=== PATIENT | female | born 1995 | race African-American/Black ===

== ENCOUNTER 2019-01-21 20:01 | Emergency (ER) | payer OTHER, SELFPAY ==
[2019-01-21] MEDS ORDERED: ACETAMINOPHEN 500 MG TAB ONE (21:13)
--- NOTE | 2019-01-21 21:13 | ER ---
Nurse's Notes [facility] Name: Cindy Baker Age: 23 yrs Sex: Female : 1995 Arrival Date: 01/21/2019 Time: 20:02 Bed 14 Private MD: Diagnosis: Acute upper respiratory infection, unspecified Presentation: 01/21 20:09 Presenting complaint: Patient states: I have a sore throat, headache, and fever. ed1 Transition of care: patient was not received from another setting of care. Onset of symptoms was January 21, 2019. Risk Assessment: Do you want to hurt yourself or someone else? Patient reports no desire to harm self or others. Initial Sepsis Screen: Does the patient meet any 2 criteria? No. Patient's initial sepsis screen is negative. Does the patient have a suspected source of infection? No. Patient's initial sepsis screen is negative. Care prior to arrival: Medication(s) given: Motrin, BC powder. 20:09 Method Of Arrival: Ambulatory ed1 20:09 Acuity: ARIANNA 4 ed1 Triage Assessment: 20:10 Headache History: The patient has had previous headaches and this one is similar to ed1 previous episodes. General: Appears in no apparent distress. Behavior is calm, cooperative, Pt texting on phone during triage. Pain: Complains of pain in head Pain currently is 8 out of 10 on a pain scale. Pain began this afternoon Also complains of body aches. Neuro: Level of Consciousness is awake, alert, obeys commands, Oriented to person, place, time, situation. 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 Patient has never been vaccinated. - Social history:: Smoking status: Patient uses tobacco products, denies chronic smoking, but will smoke occasionally. - Ebola Screening: : Patient negative for fever greater than or equal to 101.5 degrees Fahrenheit, and additional compatible Ebola Virus Disease symptoms Patient denies exposure to infectious person Patient denies travel to an Ebola-affected area in the 21 days before illness onset No symptoms or risks identified at this time. Screenin:20 Abuse screen: Denies threats or abuse. Denies injuries from another. Nutritional rv screening: No deficits noted. Tuberculosis screening: No symptoms or risk factors identified. Fall Risk None identified. Assessment: 21:05 General: Appears in no apparent distress. comfortable, Behavior is calm, cooperative. rv Pain: Complains of pain in head. Neuro: Level of Consciousness is awake, alert, obeys commands, Oriented to person, place, time, situation, Reports headache. Cardiovascular: Patient's skin is warm and dry. Respiratory: Airway is patent. GI: No signs and/or symptoms were reported involving the gastrointestinal system. : No signs and/or symptoms were reported regarding the genitourinary system. EENT: No signs and/or symptoms were reported regarding the EENT system. Derm: Skin is intact. 21:05 Musculoskeletal: No signs and/or symptoms reported regarding the musculoskeletal system.rv Vital Signs: 20:10 BP 138 / 81; Pulse 102; Resp 20; Temp 100.0(TE); Pulse Ox 98% on R/A; Weight 62.14 kg; ed1 Height 5 ft. 2 in. (157.48 cm); Pain 8/10; 21:21 BP 124 / 78; Pulse 96; Resp 17; Temp 99.6; Pulse Ox 99% ; rv 20:10 Body Mass Index 25.06 (62.14 kg, 157.48 cm) ed1 ED Course: 20:02 Patient arrived in ED. am2 20:10 Triage completed. ed1 20:10 Arm band placed on. ed1 20:12 Sadaf Hitchcock FNP-C is PHCP. kb 20:12 Karl Thomson MD is Attending Physician. kb 20:24 Sang Nichols RN is Primary Nurse. rv 21:20 Patient has correct armband on for positive identification. Call light in reach. Side rv rails up X 1. Pulse ox on. NIBP on. 21:20 No provider procedures requiring assistance completed. Patient did not have IV access rv during this emergency room visit. Administered Medications: 21:07 Drug: Tylenol 1000 mg Route: PO; rv 21:21 Follow up: Response: No adverse reaction rv Outcome: 21:13 Discharge ordered by . kb 21:21 Discharged to home ambulatory. rv 21:21 Condition: good 21:21 Discharge instructions given to patient, Instructed on discharge instructions, follow up and referral plans. Demonstrated understanding of instructions, follow-up care. 21:22 Patient left the ED. rv Signatures: Sadaf Hitchcock, CUTTING TABLE OPERATOR FIRST-C BARI-Nadira Link RN RN ed1 Shazia Roberts am2 Sang Nichosl, RN RN rv
--- NOTE | 2019-01-21 21:14 | EDPHYS ---
Physician Documentation [facility] Name: Cindy Baker Age: 23 yrs Sex: Female : 1995 Arrival Date: 01/21/2019 Time: 20:02 Bed 14 Private MD: APRIL Physician Karl Thomson HPI: 01/21 21:04 This 23 yrs old Black Female presents to ER via Ambulatory with complaints of Headache, kb Sore Throat, Body ache. 21:04 The patient or guardian reports cough, that is intermittent, described as mild, with no kb sputum, flu symptoms, low-grade fever. The patient or guardian reports. Onset: The symptoms/episode began/occurred today. Severity of symptoms: At their worst the symptoms were mild, moderate, in the emergency department the symptoms are unchanged. Modifying factors: The symptoms are alleviated by nothing, the symptoms are aggravated by nothing. Associated signs and symptoms: Pertinent positives: fever, sore throat, Pertinent negatives: chest pain, diarrhea, ear ache, nausea, rhinorrhea, vomiting. The patient has not experienced similar symptoms in the past. The patient has not recently seen a physician. 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 Patient has never been vaccinated. - Social history:: Smoking status: Patient uses tobacco products, denies chronic smoking, but will smoke occasionally. - Ebola Screening: : Patient negative for fever greater than or equal to 101.5 degrees Fahrenheit, and additional compatible Ebola Virus Disease symptoms Patient denies exposure to infectious person Patient denies travel to an Ebola-affected area in the 21 days before illness onset No symptoms or risks identified at this time. ROS: 21:04 Neck: Negative for injury, pain, and swelling, Cardiovascular: Negative for chest pain, kb palpitations, and edema, Abdomen/GI: Negative for abdominal pain, nausea, vomiting, diarrhea, and constipation, Back: Negative for injury and pain, : Negative for injury, bleeding, discharge, and swelling, MS/Extremity: Negative for injury and deformity, Skin: Negative for injury, rash, and discoloration, Neuro: Negative for headache, weakness, numbness, tingling, and seizure. 21:04 Constitutional: Positive for body aches, chills, fatigue, fever, malaise, Negative for poor PO intake, weight loss. 21:04 ENT: Positive for sore throat. 21:04 Respiratory: Positive for cough, Negative for dyspnea on exertion, hemoptysis, orthopnea, pleurisy, shortness of breath, sputum production, wheezing. Exam: 21:03 Constitutional: This is a well developed, well nourished patient who is awake, alert, kb and in no acute distress. Head/Face: Normocephalic, atraumatic. Chest/axilla: Normal chest wall appearance and motion. Nontender with no deformity. No lesions are appreciated. Cardiovascular: Regular rate and rhythm with a normal S1 and S2. No gallops, murmurs, or rubs. Normal PMI, no JVD. No pulse deficits. Respiratory: Lungs have equal breath sounds bilaterally, clear to auscultation and percussion. No rales, rhonchi or wheezes noted. No increased work of breathing, no retractions or nasal flaring. Abdomen/GI: Soft, non-tender, with normal bowel sounds. No distension or tympany. No guarding or rebound. No evidence of tenderness throughout. Skin: Warm, dry with normal turgor. Normal color with no rashes, no lesions, and no evidence of cellulitis. MS/ Extremity: Pulses equal, no cyanosis. Neurovascular intact. Full, normal range of motion. Neuro: Awake and alert, GCS 15, oriented to person, place, time, and situation. Cranial nerves II-XII grossly intact. Motor strength 5/5 in all extremities. Sensory grossly intact. Cerebellar exam normal. Normal gait. 21:03 ENT: External ear(s): are unremarkable, Ear canal(s): are normal, TM's: are normal, Nose: is normal, Mouth: is normal, Posterior pharynx: Airway: normal, no evidence of obstruction, Tonsils: bilaterally enlarged, with erythema, Uvula: normal, midline, swelling, that is mild, erythema, that is mild, exudate, is not appreciated. Vital Signs: 20:10 BP 138 / 81; Pulse 102; Resp 20; Temp 100.0(TE); Pulse Ox 98% on R/A; Weight 62.14 kg; ed1 Height 5 ft. 2 in. (157.48 cm); Pain 8/10; 21:21 BP 124 / 78; Pulse 96; Resp 17; Temp 99.6; Pulse Ox 99% ; rv 20:10 Body Mass Index 25.06 (62.14 kg, 157.48 cm) ed1 MDM: 20:14 Patient medically screened. kb 21:01 Data reviewed: vital signs, nurses notes. Data interpreted: Pulse oximetry: on room air kb is 98 %. Interpretation: normal. Counseling: I had a detailed discussion with the patient and/or guardian regarding: the historical points, exam findings, and any diagnostic results supporting the discharge/admit diagnosis, lab results, the need for outpatient follow up, a family practitioner, to return to the emergency department if symptoms worsen or persist or if there are any questions or concerns that arise at home. 01/21 20:12 Order name: Flu; Complete Time: 21:12 kb 01/21 20:12 Order name: Strep; Complete Time: 21:06 kb 01/21 21:04 Order name: Throat Culture EDMS Administered Medications: 21:07 Drug: Tylenol 1000 mg Route: PO; rv 21:21 Follow up: Response: No adverse reaction rv Disposition: 01/22 07:17 Co-signature as Attending Physician, Karl Thomson MD I agree with the assessment and bridger plan of care. Disposition: 01/21/19 21:13 Discharged to Home. Impression: Acute upper respiratory infection, unspecified. - Condition is Stable. - Discharge Instructions: Upper Respiratory Infection, Adult, [id number], Viral Respiratory Infection, [id number]. - Medication Reconciliation Form, Thank You Letter, Antibiotic Education, Prescription Opioid Use form. - Work release form (01/24/19 12:53). bd - Follow up: Emergency Department; When: As needed; Reason: Worsening of condition. Follow up: Private Physician; When: 2 - 3 days; Reason: Recheck today's complaints, Continuance of care, Re-evaluation by your physician. Signatures: Dispatcher [employer] EDMS Sadaf Hitchcock, QUANTITATIVE ANALYST-C BARI-Karl Gonzalez MD MD cha Riggs, Erika, RN RN ed1 Sang Nichols RN RN rv Sharri Castro Corrections: (The following items were deleted from the chart) 01/21 21:22 21:13 01/21/2019 21:13 Discharged to Home. Impression: Acute upper respiratory rv infection, unspecified. Condition is Stable. Forms are Medication Reconciliation Form, Thank You Letter, Antibiotic Education, Prescription Opioid Use. Follow up: Emergency Department; When: As needed; Reason: Worsening of condition. Follow up: Private Physician; When: 2 - 3 days; Reason: Recheck today's complaints, Continuance of care, Re-evaluation by your physician. kb
== END 2019-01-21 21:22 | disposition home or self-care (01) ==
LOC: ER 20:01
DX: J06.9 Acute upper respiratory infection, unspecified (principal); Z88.2 Allergy status to sulfonamides; Z72.0 Tobacco use
CPT/HCPCS: 87070; 87081; 87804; 99283

== ENCOUNTER 2020-05-22 14:54 | Emergency (ER) | payer SELFPAY ==
--- OUTSIDE RECORDS SUMMARY | 2020-05-22 15:19 | XMS REPORT | Continuity of Care Document ---
:1995 Author Organization [facility] t Address [address] [place] [address] Care Team Providers Name Role Phone Johanny Wiseman Attending Clinician Problems This patient has no known problems. Allergies, Adverse Reactions, Alerts This patient has no known allergies or adverse reactions. Medications This patient has no known medications. Procedures This patient has no known procedures. Encounters Start End Encounter Admission Attending Care Care Encounter Source Date/Time Date/Time Type Type Clinicians Facility Department ID 2020-02-29 2020-02-29 Office SANTANA Mcintosh [id number] 10:34:11 11:10:39 Visit Soledad Orlando PROGRESS CLERK [id number] [facility] [id number] MATERNAL [id number] & CHILD [address] [place] [address] Results This patient has no known results.
--- OUTSIDE RECORDS SUMMARY | 2020-05-22 15:19 | XMS REPORT | Summary of Care ---
:1995 Author Organization [facility] Address [address] [place] [id number] Care Team Providers Name Role Phone Johanny Mcintosh Primary Care Provider Reason for Visit Reason Comments Well Woman Exam Encounter Details Date Type Department Care Team Description 02/29/2020 Office Visit [facility]- Soledad Mcintosh for other contraceptive management (Primary Dx); LESLIE Loera IUD (intrauterine device) in place; [address] [place] [address] Screen for STD (sexually transmitted dis ease); [address] [place] A Well woman exam [place], [place] [id number] Allergies Active Allergy Reactions Severity Noted Date Comments Sulfa (Sulfonamide Antibiotics) Rash 6 documented as of this encounter (statuses as of 02/29/2020) Medications Medication Sig Dispensed Refills Start Date End Date Status metroNIDAZOLE 500 mg Take 1 tablet by 14 tablet 0 06/26/2019 Active tabletIndications: mouth 2 (two) Pelvic pain times daily. metroNIDAZOLE Insert 1 70 g 2 09/07/2019 Activ e (METROGEL VAGINAL) Applicator into 0.75 % vaginal vagina 2 (two) gelIndications: times per week for Vaginal discharge Other (BV). For 3 to 6 months documented as of this encounter (statuses as of 02/29/2020) Active Problems Problem Noted Date Trichomonal vulvovaginitis 02/17/2019 IUD strings lost 12/03/2018 Vaginal yeast infection 03/10/2018 Chlamydia infection 12/25/2017 IUD (intrauterine device) in place 11/05/2017 Encounter for contraceptive management 06/27/2016 Metrorrhagia 06/27/2016 Well woman exam 12/25/2015 Nexplanon removal 12/25/2015 Overview: Placed 12/2015, removed 07/2018 documented as of this encounter (statuses as of 02/29/2020) Resolved Problems Problem Noted Date Resolved Date Screening for STD (sexually transmitted disease) 06/27/2016 08/06/2017 Overweight 12/25/2015 08/06/2017 Liveborn infant, of mathur , born in hospital by 07/30/2015 12/14/2015 vaginal delivery 39 weeks gestation of 07/28/2015 12/14/19 16 Group B streptococcal bacteriuria 06/05/20152015 Antepartum asymptomatic bacteriuria 05/22/201512/07 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 High-risk 05/22/2015 12/25/2015 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 History of palpitations 05/22/2015 12/25/2015 Need for prophylactic vaccination with combined 05/22/2015 12/25/2015 ywwsykbwfi-qhzmtlr-vvbrmnaip (DTP) vaccine Rh negative state in antepartum period, third trimester, fet us 05/22/2015 12/25/2015 1 BV (bacterial vaginosis) 11/11/2014 06/05/2015 General counseling for initiation of other contraceptive 02/201506/05/2015 measures Rubella immune 11/11/2014 12/25/2015 documented as of this encounter (statuses as of 02/29/2020) Immunizations Name Administration Dates Next Due DTAP 08/19/2007 HEPATITIS A 08/19/2007 HPV 05/22/2015 (Deferred: Contraindication), 08/19/2007 HPV9 08/06/2017 Influenza Virus Vaccine Quad ID [id number] 06/19/2015 YRS Meningococcal Vaccine 08/19/2007 Rho (d) Immune Globulin 05/22/2015 TDAP 05/22/2015, 09/08/2011 Varicella (varivax)(chicken pox) 08/19/2007 documented as of this encounter Social History Tobacco Use Types Packs/Day Years Used Date Never Smoker Smokeless Tobacco: Never Used Comments: Socially Alcohol Use Drinks/Week oz/Week Comments Yes 0 Standard drinks or equivalent 0.0 socially Alcohol Habits Answer Date Recorded How often do you have a drink containing alcohol? Monthly or less 02/29/2020 How many drinks containing alcohol do you have on a Not aske d typical day when you are drinking? How often do you have six or more drinks on one Not asked occasion? Sex Assigned at Date Recorded Not on file Job Start Date Occupation Industry Not on file Not on file Not on file Travel History Travel Start Travel End No recent travel history available. COVID-19 Exposure Response Date Recorded In the last month, have you been in contact with No / Unsure 02/29/2020 10:40 AM CDT someone who was confirmed or suspected to have Coronavirus / COVID-19? documented as of this encounter Last Filed Vital Signs Vital Sign Reading Time Taken Comments Blood Pressure 123/82 02/29/2020 10:40 AM CDT Pulse 90 02/29/2020 10:40 AM CDT Temperature 37.1 C (98.7 F) 02/29/2020 10:40 AM CDT Respiratory Rate 16 02/29/2020 10:40 AM CDT Oxygen Saturation - - Inhaled Oxygen Concentration - - Weight 60.9 kg (134 lb 5 oz) 02/29/2020 10:40 AM CDT Height 157.5 cm (5' 2") 02/29/2020 10:40 AM CDT Body Mass Index 24.57 02/29/2020 10:40 AM CDT documented in this encounter Patient Instructions Patient InstructionsKinza Luciano RN - 02/29/2020 10:30 AM CDT Patient Education Prevention Guidelines,Women Ages 18 to 39 Screening tests and vaccines are an important part of managing your health. A screening test is doneto find possible disorders or diseases in people who don't have any symptoms. The goal is to find a disease early so lifestyle changes can be made and you can be watched more closely to reduce the riskof disease, or to detect it early enough to treat it most effectively. Screening tests are not considered diagnostic, but are used to determine if more testing is needed. Health counseling is essential, too. Below are guidelines for these, for women ages 18 to 39. Talk with your healthcare provider tomake sure youre up-to-date on what you need. Screening Who needs it How often Alcohol misuse All women in this age group At routine exams Blood pressure All women in this age group Yearly checkup if your blood pressure is normal Normal blood pressure is less than 120/80 mm Hg If your blood pressure reading is higher than normal, follow the advice of your healthcare provider Breast cancer All women in this age group should talk with their healthcare providers about the needfor clinical breast exams (CBE)1 Clinical breast exam every 3 years1 Cervical cancer Women ages 21 and older Women between ages 21 and 29 should have a Pap test every 3 years; women between ages 30 and 65 are advised to have a Pap test plus an HPV test every 5 years Chlamydia Sexually active women ages 25 and younger, and women at increased risk for infection (suchas having multiple sex partners) Every year if you're at risk or have symptoms Depression All women in this age group At routine exams Type 2 diabetes, prediabetes All women with no symptoms who are overweight or obese and have 1 or more other risk factors for diabetes At least every 3 years. Also, testing for diabetes during after the 24th week. Type 2 diabetes, prediabetes All women diagnosed with gestational diabetes Lifelong testing every 3 years Type 2 diabetes All women with prediabetes Every year Gonorrhea Sexually active women at increased risk for infection At routine exams Hepatitis C Anyone at increased risk At routine exams HIV All women should be tested at least once for HIV between the ages of 13 and 64 At routine exams.Those with risk factors for HIV should be tested at least annually. Obesity All women in this age group At routine exams Syphilis Women at increased risk for infection should talk with their healthcare provider At routineexams Tuberculosis Women at increased risk for infection should talk with their healthcare provider Ask your healthcare provider Vision All women in this age group At least 1 complete exam in your 20s, and 2 in your 30s Vaccine2 Who needs it How often Chickenpox (varicella) All women in this age group who have no record of this infection or vaccine 2doses; the second dose should be given 4 to 8 weeks after the first dose Hepatitis A Women at increased risk for infection should talk with their healthcare provider 2 dosesgiven at least 6 months apart Hepatitis B Women at increased risk for infection should talk with their healthcare provider 3 dosesover 6 months; second dose should be given 1 month after the first dose; the third dose should be given at least 2 months after the second dose and at least 4 months after the first dose Haemophilus influenzaeType B (HIB) Women at increased risk for infection should talk with their healthcare provider 1 to 3 doses Human papillomavirus (HPV) All women in this age group up to age 26 3 doses; the second dose should be given 1 to 2 months after the first dose and the third dose given 6 months after the first dose Influenza (flu) All women in this age group Once a year Measles, mumps, rubella (MMR) All women in this age group who have no record of these infections or vaccines 1 or 2 doses Meningococcal Women at increased risk for infection should talk with their healthcare provider 1 or more doses Pneumococcal conjugate vaccine (PCV13)and pneumococcal polysaccharidevaccine(PPSV23) Women at increased risk for infection should talk with their healthcare provider PCV13: 1 dose ages 19 to 65 (protects against 13 types of pneumococcal bacteria) PPSV23: 1 to2 doses through age 64, or 1 dose at 65 or older (protects against 23 types of pneumococcal bacteria) Tetanus/diphtheria/pertussis (Td/Tdap) booster All women in this age group Td every 10 years, or a one-time dose of Tdap instead of a Td booster after age 18, then Td every 10 years Counseling Who needs it How often BRCA gene mutation testing for breast and ovarian cancer susceptibility Women with increased risk for having gene mutation When your risk is known Breast cancer and chemoprevention Women at high risk for breast cancer When your risk is known Diet and exercise Women who are overweight or obese When diagnosed, and then at routine exams Domestic violence Women at the age in which they are able to have children At routine exams Sexually transmitted infection prevention Women who are sexually active At routine exams Skin cancer Prevention of skin cancer in fair-skinned adults At routine exams Use of tobacco and the health effects it can cause All women in this age group Every visit 1 According to the ACS, women ages 20 to 39 years should have a clinical breast exam (CBE) as part of their routine health exam every 3 years. Breast self-exams are an option for women starting in their 20s.But the USPSTF does not recommend CBE. Russell last reviewed this educational content on 06/08/201719991588-[address] [employer] [place] [address], [place] [address]. All rights reserved. This information is not intended as a substitute for professional medical care. Always follow your healthcare professional's instructions. Patient Education What Are Sexually Transmitted Infections (STIs)? A sexually transmitted infection (STI) is an infection that is spread during sex. An STI can also becalled STD for sexually transmitted disease. You can become infected with an STI if you have sex with someone who has an STI. Any sex that involves the penis, vagina, anus, or mouth can spread these infections. Some STIs also spread through body fluids such as semen, vaginal fluid, or blood. Others spread through contact with infected skin. The most common STIs are chlamydia, genital warts , genital herpes, syphilis, HIV, gonorrhea, and trichomoniasis. Who is at risk? It doesnt matter if youre straight or barrios, male or female, young or old. Any person who has sex can get an STI. Your risk increases if: You have more than one partner. The more partners you have, the greater your risk. Your partner has other partners. If your partner is exposed to an STI, you could be, too. You or your partner have had sex with other people in the past. Either of you might be carrying an STI from an earlier partner. You have an STI. The STI may cause sores or other health problems that increase your risk for newinfections. Your risk will stay high unless you are treated for your current STI and change the behaviors that put you at risk. Prevent future problems Left untreated, certain STIs can lead to cancer or, rarely, . Some can harm unborn babies whosemothers are infected. Others can cause you to not be able to have children (sterility) or can affectchanges in behavior or your ability to think. You can prevent these problems with safer sex, regularcheckups, and early treatment. Always use a latex condom when you have sex. Get tested if youre at risk. And get treated early if you have an STI. Using a latex condom every time you have sex can reduce your risk of STIs. Getting checked The only sure way to know if you have an STI is to get checked by a healthcare provider. If you notice a change in how your body looks or feels, have it checked out. But keep in mind, STIs dont always show symptoms. So if youre at risk for STIs, get checked regularly. If you find you have an STI, have your partner get treatment. If not, his or her health is at risk. And left untreated, your partner could pass the STI back to you, or on to others. Common symptoms Be alert to any changes in your body and your partners body. Symptoms may appear in or near the vagina, penis, rectum, mouth, or throat. They may include: Unusual discharge Lumps, bumps, or rashes Sores that may be painful, itchy, or painless Itchy skin Burning with urination Pain in the pelvis, belly (abdomen), or rectum Bleeding from the rectum Even if you dont have symptoms You may have an STI even if you dont have symptoms. If you think you are at risk, get checked. Goto a clinic or to your healthcare provider. If your partner has an STI, you need to be tested even if you feel fine. Vaccines to prevent disease Vaccines are available to prevent hepatitis A and hepatitis B. These are 2 kinds of STIs. There is also a vaccine to prevent human papillomavirus (HPV). This is a virus that can be passed from person to person through sexual contact. Ask your healthcare provider whether any of these vaccines is right for you. [employer] last reviewed this educational content on 08/08/201819991406-4376 [employer]. [address] [place] [address]. All rights reserved. This information is not intended as a substitute for professional medical care. Always follow your healthcare professional's instructions. Patient Education Understanding HIV and AIDS It's important to know how HIV can get into your body and what happens once its there. Then youll be better prepared to protect yourself or others against this virus. A person with HIV can look and feel perfectly healthy. But that person can give HIV to others as soon as he or she is infected with the virus. Having unsafe or unprotected sex or sharing needles puts you at risk for HIV. Talk with your healthcare provider about ways to protect yourself or a loved one from getting HIV. How HIV infection progresses After HIV enters the body, it attacks the immune system in the stages below. A person with HIV can infect others once the virus gets into the blood. HIV with no symptoms. A person with HIV may have no symptoms for years. The only sign of infection may be a positive blood test for HIV 2 weeks to 3 months or later after HIV enters the body. HIV with symptoms. Some people develop an illness similar to mono (mononucleosis) 2 to 4 weeks after the virus enters the body. This is called acute retroviral syndrome. Symptoms may include swollen lymph glands, chills, fever, night sweats, weakness, weight loss, skin rashes, mouth ulcers, or sore t hroat. Symptoms may be mild or the person can feel quite sick. Even without treatment the symptoms almost always go away in a few days or up to 2 to 3 weeks. Then the person has no symptoms, often for years. But over time the immune system starts to get weaker and symptoms start appearing. People at this stage may have a yeast infection in the mouth (oral thrush), shingles, skin problems, pneumonia, diarrhea that keeps coming back, or weight loss. AIDS. AIDS is the most advanced stage of HIV infection, when the immune system is severely weakened.Certain rare diseases and cancers that normally would not occur, now can occur because the body can no longer fight them well enough. It is often these diseases that cause in people with AIDS. HIV may also directly attack the brain and nervous system. This causes seizures and loss of memory and body movement. It also affects many other parts of the body. This leads to problems such as anemia, low white blood cell count, diarrhea, belly pain, skin problems, and many others. How HIV enters the body HIV is carried in semen, vaginal fluid, blood, and breastmilk. During sex, HIV can enter the body. It gets in through the fragile tissue and linings, sores, or cuts in or around the vagina, penis, anus, and mouth. During drug use, tattooing, or body piercing, the virus can enter the blood through an infected needle. A mother who has HIV can infect her child during , childbirth, and . [employer] last reviewed this educational content on 02/06/201919994696-5436 [employer]. [address] [place] [address], [place] [address]. All rights reserved. This information is not intended as a substitute for professional medical care. Always follow your healthcare professional's instructions. Patient Education Clinical Breast Exam Many health organizations recommend a yearly clinical breast exam. This exam may be done by a teletype telegrapher, family healthcare provider, nurse practitioner, nurse gate operator, or specially trained nurse. Yearly breast exams help tomake surethat breast conditions are found early. Your healthcare providers role A healthcare professional knows the tests and follow-up care needed if a problem is found. Your clinical exam is also a great time to ask questions about breast self-exams. You can find out if yourechecking your breasts in the best way. Or you may want to ask how , breast implants, or breast reduction surgery affect the way you should check your breasts. Diagnostic tests If a clinical exam reveals a breast change, you may have other tests to find out more. These tests may include: Mammography. A low-dose X-ray of your breast tissue. Ultrasound. An imaging test that uses sound waves to create images of your breast. Biopsy. A small amount of breast tissue is removed by needle or by a cut (incision). The tissue is then checked under a microscope. Guidelines for having clinical breast exams The [employer] [employer] recommends that starting at age 29, you should have a clinical breast exam every 1 to 3 years. After age 40, have a clinical breast exam each year. If youre at higher risk for breast cancer, you may need exams more often. Risk factors for breast cancer may include: Being over 50 or postmenopausal Having a family history of breast cancer Having the BRCA1 or BRCA2 gene mutation or certain other gene mutations Having more menstrual periods due to starting menstruation early(before age 12) or having a late menopause (after age 55) Having no pregnancies Having a first after age 30 Being obese Having a history of radiation treatment to your chest area Exposure to HAIM during your mother's Not being active Drinking too much alcohol Having dense breast tissue Taking hormone therapy after menopause Other health organizations have different recommendations. Talk with your healthcare provider about what is best for you. [employer] reviewed this educational content on 04/08/201719999505-6896 [employer]. [address] [place] [address], [place] [address]. All rights reserved. This information is not intended as a substitute for professional medical care. Always follow your healthcare professional's instructions. Patient Education Breast Health: Breast Self-Awareness What is breast self-awareness? Breast self-awareness is knowing how your breasts normally look and feel. Your breasts change as yougo through different stages of your life. So its important to learn what is normal for your breasts. Knowing about your breasts helps you spot any changes in them right away. Tell your healthcare provider about any changes. Why is breast self-awareness important? Many experts now say that women should focus on breast self-awareness instead of doing a breast self-examination (BSE). These experts include the [place] [employer] and the [place] [employer]. Some experts even advise not teaching women to do a BSE. Thats because research hasnt shown a clear benefit to doing BSEs. Breast self-awareness is different than a BSE. It isnt about following a certain method and schedule. Its about knowing what's normal for your breasts. That way you can spot even small changes right away. If you see any changes, tell your healthcare provider. Changes to look for Call your healthcare provider if you find any changes in your breasts that worry you. These changes may be: A lump Nipple discharge other than breastmilk, especially if it's bloody Swelling A change in size or shape Skin changes, such as redness, thickening, or dimpling of the skin Swollen lymph nodes in the armpit Nipple problems, such as pain or redness If you find a lump Call your provider if you find lumpiness in one breast. Also call if you feel something different inthe tissue or feel a definite lump. Sometimes lumpiness may be due to menstrual changes. But there may be reason for concern. Your provider may want to see you right away if you have: Nipple discharge that is bloody Skin changes on your breast, such as dimpling or puckering Its okay to be upset if you find a lump. Be sure to call your provider right away. Remember that most breast lumps are benign. This means they are not cancer. [employer] last reviewed this educational content on 04/08/201719997013-4959 [employer]. [address] [place] [address], [place] [address]. All rights reserved. This information is not intended as a substitute for professional medical care. Always follow your healthcare professional's instructions. Patient Education Control Methods control methods are used to help prevent .There are many different methods to choose from. Talk to your healthcare provider about which method is right for you.Be sure to ask your provider about the effectiveness of each method. Also ask about the benefits, risks, and side effects of each method. Hormones Some control methods work by releasing hormones such as progestin and estrogen. These methods include hormone implants, hormone shots, the vaginal ring, the patch,and control pills. They all work by stopping ovulation (release of the egg from the ovary). The implant is a small device that needs to be placed in the upper arm by a trained healthcare provider. It works for up to3 years.Hormone injections must be repeated every 3 months.The vaginal ring must be replaced monthly (it can be removed during the fourth week of each cycle). The patch must be replaced weekly (it is not worn during the fourth week of each cycle). control pills must be taken every day. All of these met hods are effective and can be stopped at any time. Intrauterine device (IUD) An IUD is a small, T-shaped device. It must be placed in the uterus by a trained healthcare provider.There are different types of IUDs available. They work by causing changes in the uterus that make it harder for sperm to reach the egg. Depending on the type of IUD you have, it may work for several years or longer. The IUD is a reversible control method. This means it can be removed at any time. Condom A condom is a sheath that forms a thin barrier between the penis and the vagina.It helps prevent by keeping sperm from entering the vagina. When latex condoms are used, they have the added benefit of protecting against most STIs (sexually transmitted infections).Condoms are used each time there is sexual intercourse and should be discarded after each use. Ask your healthcare provider about the different types of condoms available. These include both the male condom and female condom. Spermicide Spermicides come as foams, jellies, creams, suppositories, andtablets.They help prevent by killing sperm. When used alone they are not that reliable. They work best when combined with other control methods such as diaphragms and cervical caps. Sponge, diaphragm, and cervical cap All of these methods help prevent by covering the opening of the uterus (cervix). This prevents sperm from passing through. The sponge contains spermicide. It can be bought over the counter. The sponge must be left in place for at least 6 hours after the last time you have sex.However, it should not stay in place for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
--- OUTSIDE RECORDS SUMMARY | 2020-05-22 15:19 | XMS REPORT | Summary of Care ---
:1995 Author Organization [facility] Address [address] [place] [address] Care Team Providers Name Role Phone Johanny Mcintosh Primary Care Provider Reason for Visit Reason Comments Well Woman Exam Encounter Details Date Type Department Care Team Description 02/29/2020 Office Visit [facility]- Soledad Mcintosh for other contraceptive management (Primary Dx); LESLIE Loera IUD (intrauterine device) in place; [address] Screen for STD (sexually transmitted dis ease); [address] [place] A Well woman exam [place], [place] [phone] Allergies Active Allergy [...] asymptomatic bacteriuria 05/22/201512/07 Overview: ICD10 Diagnosis Term 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 [place] [address], [place] [address]. All rights reserved. This information is not [...] of these vaccines is right for you. Smartzer last reviewed this educational content on 08/08/201819992636-7879 The [employer]. [address] [place] [address]. All rights reserved. This information is not [...] her child during , childbirth, and . [employer] last reviewed this educational content on 02/06/201919992152-4049 The [employer]. [address] [place] [address], [place] [address]. All rights reserved. This information is not intended as a substitute for professional medical care. Always follow your healthcare professional's instructions. Patient Education Clinical Breast Exam Many health organizations recommend a yearly clinical breast exam. This exam may be done by a contour stitcher, family healthcare provider, nurse practitioner, nurse dial marker, or specially trained nurse. Yearly breast exams [...] Guidelines for having clinical breast exams The [place] [employer]nec[employer] recommends that [...] provider about what is best for you. [employer] reviewed this educational content on 04/08/201719991010-3276 The [employer]. [address] [place] [address], [place] [address]. All rights reserved. This information is not [...] breast self-examination (BSE). These experts include the [place] [employer] and the [place] [employer]stetricians and Gynecologists. Some experts [...] benign. This means they are not cancer. Smart[employer] last reviewed this educational content on 04/08/201719996536-4734 The [employer]. [address] [place] [address], [place] [address]. All rights reserved. This information is not [...] want to have children in the future. [employer] last reviewed this educational content on 07/09/201719996183-2639 The [employer]. [address] [place] [address]. All rights reserved. This information is not [...] get this muchfrom the food you eat. [employer] last reviewed this educational content on 04/08/201719997523-6062 The [employer]. [address] [place] [address], [place] [address]. All rights reserved. This information is not [...] file Gets together: Not on file Attends adventist service: Not on file Active member of [...] lives at home with parents. Patient is yazdanism. Social History Substance and Sexual Activity Sexual [...] cycle since Mirena been placed 4) Last [place]: 02/28/2020 5) Last Pap: 08/06/2017 Results: neg [...] OB Satellites Kenzie Mcintosh WHCNP [address] [place] [place], [place] [address] Name Type Priority [...] Address Typ e / Group Dates [facility] xxxxxxxxx 2017-Pres [phone] Medicaid WOMEN ent [address] [place] [address] documented as of this encounter Advance Directives Name Relationship Healthcare Agent Communication Relationship Urban Ahmadi Father Primary healthcare agent Teresa Blackmon Mother Primary healthcare agent
[2020-05-22 17:03] LABS: Urine Blood TRACE (NEG); Urine Glucose NEGATIVE (NEG); Urine Protein NEGATIVE (NEG); Urine Specific Gravity >1.030 (1.005-1.030)
--- NOTE | 2020-05-22 17:06 | RAD REPORT ---
EXAM DESCRIPTION: RAD - Lumbar Spine 3 Views - 05/22/2020 4:54 pm CLINICAL HISTORY: PAIN Radiculopathy COMPARISON: No comparisons FINDINGS: Vertebral body heights appear maintained. No compression fracture noted. Disc spaces are m aintained. Slight degenerative retrolisthesis of L5-S1. IUD is present. IMPRESSION: Mild lower lumbar spondylosis.
--- NOTE | 2020-05-22 17:24 | ER ---
Nurse's Notes [facility] Name: Cindy Baker Age: 24 yrs Sex: Female : 1995 Arrival Date: 05/22/2020 Time: 14:56 Bed 15 Private MD: Diagnosis: Spondylolysis, lumbar region;Sciatica, right side;Urinary tract infection, site not specified Presentation: 05/22 15:36 Chief complaint: Patient states: Low back pain, on/off, x couple months. But in the ca1 last couple weeks more consistent and pain is shooting down R leg. Hurts to sit, and shoots sharp pain on knee. Coronavirus screen: Client denies travel out of the [place] in the last 14 days. At this time, the client does not indicate any symptoms associated with coronavirus-19. Ebola Screen: Patient negative for fever greater than or equal to 101.5 degrees Fahrenheit, and additional compatible Ebola Virus Disease symptoms Patient denies exposure to infectious person. Patient denies travel to an Ebola-affected area in the 21 days before illness onset. No symptoms or risks identified at this time. Initial Sepsis Screen: Does the patient meet any 2 criteria? No. Patient's initial sepsis screen is negative. Does the patient have a suspected source of infection? No. Patient's initial sepsis screen is negative. Risk Assessment: Do you want to hurt yourself or someone else? Patient reports no desire to harm self or others. Onset of symptoms was May 22, 2020. 15:36 Method Of Arrival: Ambulatory ca1 15:36 Acuity: ARIANNA 4 ca1 MANAGER OF CONSTRUCTION: 15:39 LMP N/A - control method ca1 Historical: - Allergies: 15:39 Sulfa (Sulfonamide Antibiotics); ca1 - Home Meds: 15:39 None [Active]; ca1 - PMHx: 15:39 None; ca1 - PSHx: 15:39 Hernia repair; ca1 - Immunization history:: Adult Immunizations up to date. - Social history:: Smoking status: Patient denies any tobacco usage or history of. - Family history:: not pertinent. Screenin:07 Abuse screen: Denies threats or abuse. Nutritional screening: No deficits noted. tw2 Tuberculosis screening: No symptoms or risk factors identified. Fall Risk None identified. Assessment: 16:25 General: Appears in no apparent distress. slender, well groomed, Behavior is calm, tw2 cooperative, appropriate for age. Pain: Complains of pain in lumbar area, left low back and right low back. Neuro: Level of Consciousness is awake, alert, obeys commands, Oriented to person, place, time, situation. Cardiovascular: Patient's skin is warm and dry. Respiratory: Airway is patent Respiratory effort is even, unlabored, Respiratory pattern is regular, symmetrical. GI: No signs and/or symptoms were reported involving the gastrointestinal system. : No signs and/or symptoms were reported regarding the genitourinary system. EENT: No signs and/or symptoms were reported regarding the EENT system. Derm: No signs and/or symptoms reported regarding the dermatologic system. Musculoskeletal: Circulation, motion, and sensation intact. Range of motion: intact in all extremities, Reports pain in lumbar area, left low back and right low back pt denies injury. Vital Signs: 15:36 BP 114 / 76; Pulse 98; Resp 16 S; Temp 98.7(TE); Pulse Ox 100% on R/A; Weight 59.87 kg ca1 (R); Height 5 ft. 2 in. (157.48 cm) (R); Pain 6/10; 16:24 BP 98 / 72 Supine; Pulse 64; Resp 17; Pulse Ox 99% on R/A; tw2 17:36 BP 113 / 62; Pulse 65; Resp 17; Pulse Ox 100% on R/A; tw2 15:36 Body Mass Index 24.14 (59.87 kg, 157.48 cm) ca1 ED Course: 14:56 Patient arrived in ED. as 15:38 Triage completed. ca1 15:39 Arm band placed on right wrist. ca1 16:00 Bed in low position. Call light in reach. Pulse ox on. NIBP on. Warm blanket given. tw2 16:05 Janett Hickey, KEITH is Primary Nurse. tw2 16:05 Karl Thomson MD is Attending Physician. bridger 16:49 Lumbar Spine (3 Views) XRAY In Process Unspecified. EDMS 17:39 No provider procedures requiring assistance completed. Patient did not have IV access tw2 during this emergency room visit. Administered Medications: 17:39 Drug: Motrin 600 mg Route: PO; tw2 17:41 Follow up: Response: No adverse reaction tw2 17:39 Drug: Dexamethasone 4 mg Route: PO; tw2 17:41 Follow up: Response: No adverse reaction tw2 Outcome: 17:23 Discharge ordered by MD. sparks 17:39 Discharged to home ambulatory. tw2 17:39 Condition: stable 17:39 Discharge instructions given to patient, Instructed on discharge instructions, follow up and referral plans. no drinking with medication, no driving heavy equipment, medication usage, Demonstrated understanding of instructions, follow-up care, medications, Prescriptions given X 4. 17:41 Patient left the ED. tw2 Signatures: Dispatcher [employer] EDAZ Karl Thomson MD MD cha Martinez, Amelia as Wise, Tara RN RN tw2 Alexia Andres RN RN ca1 Corrections: (The following items were deleted from the chart) 17:40 17:39 Discharge instructions given to patient, Instructed on discharge instructions, tw2 follow up and referral plans. no drinking with medication, no driving heavy equipment, medication usage, Demonstrated understanding of instructions, follow-up care, medications, Prescriptions given X 3, tw2
--- NOTE | 2020-05-22 17:24 | EDPHYS ---
Physician Documentation [facility] Name: Cindy Baker Age: 24 yrs Sex: Female : 1995 Arrival Date: 05/22/2020 Time: 14:56 Bed 15 Private MD: ED Physician Karl Thomson HPI: 05/22 17:17 This 24 yrs old Black Female presents to ER via Ambulatory with complaints of Low Back bridger Pain. 17:17 The patient presents with pain that is acute. The symptoms are located in the low back. bridger The pain radiates to the left low back and right low back. The problem was sustained when lifting from unknown cause. Onset: The symptoms/episode began/occurred 2 day(s) ago. Modifying factors: The patient symptoms are alleviated by remaining still, the patient symptoms are aggravated by movement. Associated signs and symptoms: The patient has no apparent associated signs or symptoms. Severity of symptoms: At their worst the symptoms were mild, in the emergency department the symptoms are unchanged. The patient has not experienced similar symptoms in the past. 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 - Social history:: Smoking status: Patient denies any tobacco usage or history of. - Family history:: not pertinent. ROS: 17:17 Constitutional: Negative for fever, chills, and weight loss, Eyes: Negative for injury, bridger pain, redness, and discharge, ENT: Negative for injury, pain, and discharge, Neck: Negative for injury, pain, and swelling, Cardiovascular: Negative for chest pain, palpitations, and edema, Respiratory: Negative for shortness of breath, cough, wheezing, and pleuritic chest pain, Abdomen/GI: Negative for abdominal pain, nausea, vomiting, diarrhea, and constipation, : Negative for injury, bleeding, discharge, and swelling, MS/Extremity: Negative for injury and deformity, Skin: Negative for injury, rash, and discoloration, Neuro: Negative for headache, weakness, numbness, tingling, and seizure, Psych: Negative for depression, anxiety, suicide ideation, homicidal ideation, and hallucinations, Allergy/Immunology: Negative for hives, rash, and allergies, Endocrine: Negative for neck swelling, polydipsia, polyuria, polyphagia, and marked weight changes, Hematologic/Lymphatic: Negative for swollen nodes, abnormal bleeding, and unusual bruising. 17:17 Back: Positive for decreased range of motion, pain at rest. Exam: 17:17 Constitutional: This is a well developed, well nourished patient who is awake, alert, bridger and in no acute distress. Head/Face: Normocephalic, atraumatic. Eyes: Pupils equal round and reactive to light, extra-ocular motions intact. Lids and lashes normal. Conjunctiva and sclera are non-icteric and not injected. Cornea within normal limits. Periorbital areas with no swelling, redness, or edema. ENT: Nares patent. No nasal discharge, no septal abnormalities noted. Tympanic membranes are normal and external auditory canals are clear. Oropharynx with no redness, swelling, or masses, exudates, or evidence of obstruction, uvula midline. Mucous membranes moist. Neck: Trachea midline, no thyromegaly or masses palpated, and no cervical lymphadenopathy. Supple, full range of motion without nuchal rigidity, or vertebral point tenderness. No Meningismus. Chest/axilla: Normal chest wall appearance and motion. Nontender with no deformity. No lesions are appreciated. Cardiovascular: Regular rate and rhythm with a normal S1 and S2. No gallops, murmurs, or rubs. Normal PMI, no JVD. No pulse deficits. Respiratory: Lungs have equal breath sounds bilaterally, clear to auscultation and percussion. No rales, rhonchi or wheezes noted. No increased work of breathing, no retractions or nasal flaring. Back: No spinal tenderness. No costovertebral tenderness. Full range of motion. Skin: Warm, dry with normal turgor. Normal color with no rashes, no lesions, and no evidence of cellulitis. MS/ Extremity: Pulses equal, no cyanosis. Neurovascular intact. Full, normal range of motion. Neuro: Awake and alert, GCS 15, oriented to person, place, time, and situation. Cranial nerves II-XII grossly intact. Motor strength 5/5 in all extremities. Sensory grossly intact. Cerebellar exam normal. Normal gait. Psych: Awake, alert, with orientation to person, place and time. Behavior, mood, and affect are within normal limits. 17:17 Abdomen/GI: Exam negative for Vital Signs: 15:36 BP 114 / 76; Pulse 98; Resp 16 S; Temp 98.7(TE); Pulse Ox 100% on R/A; Weight 59.87 kg ca1 (R); Height 5 ft. 2 in. (157.48 cm) (R); Pain 6/10; 16:24 BP 98 / 72 Supine; Pulse 64; Resp 17; Pulse Ox 99% on R/A; tw2 17:36 BP 113 / 62; Pulse 65; Resp 17; Pulse Ox 100% on R/A; tw2 15:36 Body Mass Index 24.14 (59.87 kg, 157.48 cm) ca1 MDM: 16:05 Patient medically screened. [facility] 17:20 Differential diagnosis: strain, sciatica, UTI. Data reviewed: vital signs, nurses [facility] notes, lab test result(s), urinalysis, radiologic studies. Data interpreted: youth nutritional monitor: not applicable for this patient encounter. rate is 64 beats/min, rhythm is regular, Pulse oximetry: on room air is 99 %. Test interpretation: by ED physician or midlevel provider: plain radiologic studies. Counseling: I had a detailed discussion with the patient and/or guardian regarding: the historical points, exam findings, and any diagnostic results supporting the discharge/admit diagnosis, lab results, radiology results, the need for outpatient follow up, for definitive care, a family practitioner. 05/22 16:33 Order name: Urine Dipstick--Ancillary (enter results); Complete Time: 17:16 05/22 16:33 Order name: Urine --Ancillary (enter results); Complete Time: 17:16 05/22 16:07 Order name: Lumbar Spine (3 Views) XRAY; Complete Time: 17:16 [facility] 05/22 16:07 Order name: Urine Dipstick-Ancillary (obtain specimen); Complete Time: 16:24 [facility] 05/22 16:07 Order name: Urine Test (obtain specimen); Complete Time: 16:24 [facility] Administered Medications: 17:39 Drug: Motrin 600 mg Route: PO; tw2 17:41 Follow up: Response: No adverse reaction tw2 17:39 Drug: Dexamethasone 4 mg Route: PO; tw2 17:41 Follow up: Response: No adverse reaction tw2 Disposition: 05/22/20 17:23 Discharged to Home. Impression: Spondylolysis, lumbar region, Sciatica, right side, Urinary tract infection, site not specified. - Condition is Stable. - Discharge Instructions: Sciatica, Urinary Tract Infection, Adult, Urinary Tract Infection, Adult, [id number], Back Exercises, [id number]. - Prescriptions for Cipro 250 mg Oral Tablet - take 1 tablet by ORAL route every 12 hours; 14 tablet. Medrol ([place]) 4 mg Oral Tablets, Dose Pack - take 1 tablet by ORAL route as directed - follow package instructions; 1 packet. Motrin IB 200 mg Oral Tablet - take 2 tablet by ORAL route every 6 hours As needed as needed with food; 30 tablet. Cyclobenzaprine 5 mg Oral Tablet - take 1 tablet by ORAL route 3 times per day As needed; 15 tablet. - Medication Reconciliation Form, Thank You Letter, Antibiotic Education, Prescription Opioid Use, Work release form form. - Follow up: Private Physician; When: 2 - 3 days; Reason: Recheck today's complaints, Continuance of care, Re-evaluation by your physician. - Problem is new. - Symptoms have improved. Signatures: Dispatcher [employer] EDMS Karl Thomson MD MD cha Wise, Tara, RN RN tw2 Alexia Andres RN RN ca1 Corrections: (The following items were deleted from the chart) 17:25 17:23 05/22/2020 17:23 Discharged to Home. Impression: Spondylolysis, lumbar region. [facility] Condition is Stable. Forms are Work release form, Medication Reconciliation Form, Thank You Letter, Antibiotic Education, Prescription Opioid Use. Follow up: Private Physician; When: 2 - 3 days; Reason: Recheck today's complaints, Continuance of care, Re-evaluation by your physician. Problem is new. Symptoms have improved. bridger 17:41 17:25 05/22/2020 17:23 Discharged to Home. Impression: Spondylolysis, lumbar region; tw2 Sciatica, right side; Urinary tract infection, site not specified. Condition is Stable. Forms are Work release form, Medication Reconciliation Form, Thank You Letter, Antibiotic Education, Prescription Opioid Use. Follow up: Private Physician; When: 2 - 3 days; Reason: Recheck today's complaints, Continuance of care, Re-evaluation by your physician. Problem is new. Symptoms have improved. bridger
[2020-05-22] MEDS ORDERED: IBUPROFEN 200 MG TAB PO ONE (17:38)
[2020-05-22] MEDS ORDERED: IBUPROFEN 400 MG TAB ONE (17:38)
[2020-05-22] MEDS ORDERED: dexAMETHasone 4 MG TAB ONE (17:39)
[2020-05-22 19:22] VITALS: TEMP 98.7
[2020-05-22 19:25] VITALS: BP 113/62; O2SAT 100
== END 2020-05-22 17:41 | disposition home or self-care (01) ==
LOC: ER 14:54
DX: M54.31 Sciatica, right side (principal); M47.896 Other spondylosis, lumbar region; N39.0 Urinary tract infection, site not specified; Z88.2 Allergy status to sulfonamides
CPT/HCPCS: 72100; 81003; 81025; 99284; J8540

== ENCOUNTER 2020-06-14 23:22 | Emergency (ER) | payer OTHER, SELFPAY ==
[2020-06-15] MEDS ORDERED: KETOROLAC 30 MG/ML INJ ONE (00:18)
[2020-06-15] MEDS ORDERED: CYCLOBENZAPRINE 10 MG TAB ONE (00:18)
[2020-06-15 00:37] LABS: Urine Blood TRACE (NEG); Urine Glucose NEGATIVE (NEG); Urine Protein NEGATIVE (NEG); Urine Specific Gravity >1.030 (1.005-1.030)
--- NOTE | 2020-06-15 00:50 | EDPHYS ---
Physician Documentation [facility] Name: Cindy Baker Age: 24 yrs Sex: Female : 1995 Arrival Date: 06/14/2020 Time: 23:27 Bed 6 Private MD: ED Physician Db Bailey HPI: 06/14 23:50 This 24 yrs old Black Female presents to ER via Ambulatory with complaints of Back Pain.cp 23:50 The patient presents with pain that is acute, with no known mechanism of injury. The cp symptoms are located in the low back. 23:50 Onset: The symptoms/episode began/occurred 2 month(s) ago. cp 23:50 The pain does not radiate. Associated signs and symptoms: Pertinent negatives: cp abdominal pain, chest pain, constipation, dysuria, fever, hematuria, incontinence, numbness, urinary retention, weakness. The problem was sustained work requires sitting for long periods which makes pain worse. 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 - Social history:: Smoking status: Patient denies any tobacco usage or history of. ROS: 06/15 00:00 Constitutional: Negative for body aches, chills, fever, poor PO intake. cp 00:00 Eyes: Negative for injury, pain, redness, and discharge. cp 00:00 ENT: Negative for ear pain, sore throat, difficulty swallowing, difficulty handling secretions. 00:00 Cardiovascular: Negative for chest pain. 00:00 Respiratory: Negative for cough, shortness of breath, wheezing. 00:00 Abdomen/GI: Negative for abdominal pain, nausea, vomiting, and diarrhea, constipation, bowel incontinence. 00:00 Back: Positive for pain at rest, pain with movement, of the low back area, Negative for radiated pain. 00:00 : Negative for injury or acute deformity, urinary symptoms, pelvic pain, flank pain, bladder incontinence, vaginal bleeding, vaginal discharge. 00:00 Neuro: Negative for numbness, weakness. 00:00 All other systems are negative. Exam: 00:05 Constitutional: The patient appears in no acute distress, alert, awake, non-toxic, well cp developed, well nourished. 00:05 Head/Face: Normocephalic, atraumatic. cp 00:05 Neck: ROM/movement: is normal, is supple, without pain, no range of motions limitations. 00:05 Chest/axilla: Inspection: normal. 00:05 Cardiovascular: Rate: normal, Rhythm: regular. 00:05 Respiratory: the patient does not display signs of respiratory distress, Respirations: normal, no use of accessory muscles, labored breathing, is not present. 00:05 Abdomen/GI: Inspection: abdomen appears normal, Palpation: abdomen is soft and non-tender, in all quadrants, voluntary guarding, is not appreciated, involuntary guarding, is not appreciated. 00:05 Back: pain, that is mild, of the low back area, ROM is painful, with all movement, CVA tenderness, is absent, Straight leg raises: of both lower extremities does not illicit pain. 00:05 Neuro: Motor: moves all fours, strength is normal, Sensation: is normal, Gait: is steady, Deep tendon reflexes are 2+ (normal) in the right patellar, right Achilles, left patellar and left Achilles. Vital Signs: 06/14 23:37 Weight 61.23 kg; Height 5 ft. 3 in. (160.02 cm); sg 23:50 BP 109 / 69; Pulse 75; Resp 16; Temp 98; Pulse Ox 99% ; Height 5 ft. 3 in. (160.02 cm); rr5 Pain 7/10; 06/15 01:11 BP 110 / 62; Pulse 70; Resp 17; Pulse Ox 99% ; Pain 2/10; rr5 06/14 23:50 Body Mass Index 23.91 (61.23 kg, 160.02 cm) rr5 MDM: 06/14 23:45 Patient medically screened. cp 06/15 00:00 Differential diagnosis: Cholelithiasis chronic back pain, Pyelonephritis ruptured disc, cp spinal injury, Ureterolithiasis. 00:50 Data reviewed: vital signs, nurses notes, lab test result(s), radiologic studies, plain cp films. 00:50 Test interpretation: by ED physician or midlevel provider: xrays of l-spine negative cp for acute findings. Counseling: I had a detailed discussion with the patient and/or guardian regarding: the historical points, exam findings, and any diagnostic results supporting the discharge/admit diagnosis, lab results, radiology results, the need for outpatient follow up, a family practitioner, to return to the emergency department if symptoms worsen or persist or if there are any questions or concerns that arise at home. 06/15 00:10 Order name: Urine Dipstick--Ancillary (enter results); Complete Time: 00:52 mw2 06/15 00:52 Interpretation: Normal except: UBLD TRACE. cp 06/15 00:10 Order name: Urine --Ancillary (enter results); Complete Time: 00:52 mw2 06/15 00:52 Interpretation: Reviewed. cp 06/14 23:45 Order name: Urine Dipstick-Ancillary (obtain specimen); Complete Time: 00:05 cp 06/14 23:45 Order name: XRAY Lumbar Spine (3 Views) cp 06/14 23:45 Order name: Urine Test (obtain specimen); Complete Time: 00:05 cp Administered Medications: 00:13 Drug: TORadol 30 mg Route: IM; Site: right gluteus; rr5 01:00 Follow up: Response: No adverse reaction; Pain is decreased rr5 00:13 Drug: Flexeril 10 mg Route: PO; rr5 01:00 Follow up: Response: No adverse reaction; Pain is decreased rr5 Disposition: 07:02 Co-signature as Attending Physician, Db Bailey MD I agree with the assessment and tw4 plan of care. Disposition: 06/15/20 00:50 Discharged to Home. Impression: Low back pain. - Condition is Stable. - Discharge Instructions: Back Pain, Adult, Heat Therapy, Back Exercises. - Prescriptions for Lidoderm 5 % Topical adhesive patch,medicated - apply 1 patch by TRANSDERMAL route once daily As needed; 1 box. Cyclobenzaprine 10 mg Oral Tablet - take 1 tablet by ORAL route every 8 hours As needed no driving while taking medication; 20 tablet. Diclofenac Sodium 75 mg Oral Tablet, Delayed Release (E.C.) - take 1 tablet by ORAL route 2 times per day; 20 tablet. - Medication Reconciliation Form, Thank You Letter, Antibiotic Education, Prescription Opioid Use, Work release form form. - Follow up: Private Physician; When: 2 - 3 days; Reason: Recheck today's complaints. - Problem is an ongoing problem. - Symptoms have improved. Signatures: Dispatcher [employer] EDMS Hernán Wu RN RN sg Karl Calderón PA PA cp Wadley, Terrence, MD MD tw4 Mich Lewis RN RN rr5 Corrections: (The following items were deleted from the chart) 01:13 00:50 06/15/2020 00:50 Discharged to Home. Impression: Low back pain. Condition is rr5 Stable. Forms are Medication Reconciliation Form, Thank You Letter, Antibiotic Education, Prescription Opioid Use. Follow up: Private Physician; When: 2 - 3 days; Reason: Recheck today's complaints. Problem is an ongoing problem. Symptoms have improved. cp
--- NOTE | 2020-06-15 00:50 | ER ---
Nurse's Notes [facility] Name: Cindy Baker Age: 24 yrs Sex: Female : 1995 Arrival Date: 06/14/2020 Time: 23:27 Bed 6 Private MD: Diagnosis: Low back pain Presentation: 06/14 23:33 Chief complaint: Patient states: Lower back pain x3-4 months, denies injury/trauma, sg reports sitting still for 12 + hours may be causing the pain to be worse. no other symptoms reported at this time. Coronavirus screen: Client denies travel out of the [place] in the last 14 days. At this time, the client does not indicate any symptoms associated with coronavirus-19. Ebola Screen: Patient negative for fever greater than or equal to 101.5 degrees Fahrenheit, and additional compatible Ebola Virus Disease symptoms Patient denies exposure to infectious person. Patient denies travel to an Ebola-affected area in the 21 days before illness onset. No symptoms or risks identified at this time. Initial Sepsis Screen: Does the patient meet any 2 criteria? No. Patient's initial sepsis screen is negative. Does the patient have a suspected source of infection? No. Patient's initial sepsis screen is negative. Risk Assessment: Do you want to hurt yourself or someone else? Patient reports no desire to harm self or others. Onset of symptoms was February 2020. Care prior to arrival: None. Mechanism of Injury: No Mechanism of Injury. Transition of care: patient was not received from another setting of care. 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 - Social history:: Smoking status: Patient denies any tobacco usage or history of. Screenin/08 00:14 Abuse screen: Denies threats or abuse. Denies injuries from another. Nutritional rr5 screening: No deficits noted. Tuberculosis screening: No symptoms or risk factors identified. Fall Risk None identified. Total Read Fall Scale indicates No Risk (0-24 pts). Assessment: 00:00 General: Appears in no apparent distress. uncomfortable, Behavior is calm, cooperative, rr5 appropriate for age. Pain: Complains of pain in left low back and right low back Pain currently is 7 out of 10 on a pain scale. Quality of pain is described as aching, Pain began gradually, Is intermittent. Neuro: Level of Consciousness is awake, alert, obeys commands, Oriented to person, place, time, situation. Cardiovascular: Capillary refill < 3 seconds Patient's skin is warm and dry. Respiratory: Airway is patent Respiratory effort is even, unlabored, Respiratory pattern is regular, symmetrical. GI: No signs and/or symptoms were reported involving the gastrointestinal system. : No signs and/or symptoms were reported regarding the genitourinary system. EENT: No signs and/or symptoms were reported regarding the EENT system. Derm: Skin is intact, is healthy with good turgor, Skin temperature is warm. Musculoskeletal: Capillary refill < 3 seconds, Reports pain in left low back and right low back. 01:11 Reassessment: Patient appears in no apparent distress at this time. Patient is alert, rr5 oriented x 3, equal unlabored respirations, skin warm/dry/pink. discharge instruction given and explained without complaints made Patient states feeling better. Patient states symptoms have improved. Vital Signs: 06/14 23:37 Weight 61.23 kg; Height 5 ft. 3 in. (160.02 cm); sg 23:50 BP 109 / 69; Pulse 75; Resp 16; Temp 98; Pulse Ox 99% ; Height 5 ft. 3 in. (160.02 cm); rr5 Pain 7/10; 06/15 01:11 BP 110 / 62; Pulse 70; Resp 17; Pulse Ox 99% ; Pain 2/10; rr5 06/14 23:50 Body Mass Index 23.91 (61.23 kg, 160.02 cm) rr5 ED Course: 06/14 23:27 Patient arrived in ED. mr 23:32 Karl Calderón PA is PHCP. cp 23:32 Db Bailey MD is Attending Physician. cp 23:33 Arm band placed on. sg 23:35 Triage completed. sg 23:39 Mich Lewis RN is Primary Nurse. rr5 23:40 Patient has correct armband on for positive identification. Bed in low position. Call rr5 light in reach. Pulse ox on. NIBP on. 06/15 00:45 XRAY Lumbar Spine (3 Views) In Process Unspecified. EDMS 01:12 No provider procedures requiring assistance completed. Patient did not have IV access rr5 during this emergency room visit. Administered Medications: 00:13 Drug: TORadol 30 mg Route: IM; Site: right gluteus; rr5 01:00 Follow up: Response: No adverse reaction; Pain is decreased rr5 00:13 Drug: Flexeril 10 mg Route: PO; rr5 01:00 Follow up: Response: No adverse reaction; Pain is decreased rr5 Outcome: 00:50 Discharge ordered by MD. cp 01:12 Discharged to home ambulatory. rr5 01:12 Condition: stable 01:12 Discharge instructions given to patient, Instructed on discharge instructions, follow up and referral plans. medication usage, Demonstrated understanding of instructions, follow-up care, medications, Prescriptions given X 3. 01:13 Patient left the ED. rr5 Signatures: Dispatcher [employer] EDMS Hernán Wu, RN RN Cintia Lai mr Karl Calderón, Mich Villatoro cp, RN RN rr5
[2020-06-15 02:19] VITALS: TEMP 98; O2SAT 99
[2020-06-15 02:21] VITALS: BP 110/62
--- NOTE | 2020-06-15 08:04 | RAD REPORT ---
EXAM DESCRIPTION: RAD - Lumbar Spine 3 Views - 06/15/2020 12:44 am CLINICAL HISTORY: PAIN COMPARISON: Lumbar Spine 3 Views dated 05/22/2020 FINDINGS: A three-view lumbar spine examination was performed. Lumbar bodies are normal in height and alignment. No fracture or acute bony process seen. No disc spa ce narrowing. No facet joint abnormality seen. No pars defects identified. Metal foreign bodies are p robably umbilical piercings. An IUD is in place. IMPRESSION: Negative Lumbar Spine examination.
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
--- OUTSIDE RECORDS SUMMARY | 2020-06-15 22:44 | XMS REPORT | Continuity of Care Document ---
:1995 Author Organization [facility] t Address [address] [place] [address] Care Team Providers Name Role Phone Johanny Wiseman Attending Clinician Problems This patient has no known problems. Allergies, Adverse Reactions, Alerts This patient has no known allergies or adverse reactions. Medications This patient has no known medications. Procedures This patient has no known procedures. Encounters Start End Encounter Admission Attending Care Care Encounter Source Date/Time Date/Time Type Type Clinicians Facility Department ID 2020-06-15 2020-06-[facility] [id number] 00:00:00 00:00:00 Soledad Orlando SEWING MACHINES SALESPERSON [id number] [facility] [id number] MATERNAL [id number] & CHILD 107 [facility] 2020-06-13 2020-06-[address] [facility] [id number] 11:06:31 11:42:47 Visit Soledad Orlando SEWING MACHINES SALESPERSON [id number] [facility] [id number] MATERNAL [id number] & CHILD 107 [facility] Results This patient has no known results.
--- OUTSIDE RECORDS SUMMARY | 2020-06-15 22:44 | XMS REPORT | Summary of Care ---
:1995 Author Organization [facility] Address [address] [place] [address] Care Team Providers Name Role Phone Johanny Mcintosh Primary Care Provider Reason for Visit Reason Comments STD Testing Encounter Details Date Type Department Care Team Description [facility] for other contraceptive management (Primary Dx); LESLIE Loera Screen for STD (sexually transmitted dis ease); 1108 [facility] [address] [place], [place] [phone] Allergies Active Allergy [...] asymptomatic bacteriuria 05/22/201512/07 Overview: ICD10 Diagnosis Term Workers' Compensation Magistrate Utility High-risk 05/22/2015 12/25/2015 Overview: ICD10 Diagnosis Term Workers' Compensation Magistrate Utility History of palpitations 05/22/2015 12/25/2015 Need for prophylactic vaccination with combined 05/22/2015 12/25/2015 xcenxfmmhi-xzanhfw-jyfrolrvu (DTP) vaccine Rh negative state in antepartum [...] file Gets together: Not on file Attends shinto service: Not on file Active member of [...] lives at home with parents. Patient is yazidi. Social History Substance and Sexual Activity Sexual [...] OB Satellites Kenzie Mcintosh WHCNP [address] [address] [phone] Name Type Priority Associated Diagnoses Date/Ti me [...] Health Maintenance Due Date Last Done Comments INFLUENZA VACCINE (#1) 2020 MENINGOCOCCAL B VACCINES (1 06/28/2020 Post poned from of 2 - Risk Bexsero 2-dose 07/08 (Refused) series) Depression Screening 06/29/2020 06/29/2019 PAP SMEAR 08/06/2020 08/06/2017 CHLAMYDIA SCREENING 02/28/2021 02/29/2020, 02/04/2020, 09/07/2019, Additional history exists DTaP,Tdap,and Td Vaccines 05/22/2025 [...] Address Typ e / Group Dates [facility] [id number] 2017-Pres [phone] [address] Medicaid WOMEN ent [address] [place] [address] documented as of this encounter Advance Directives Name Relationship Healthcare Agent Communication Relationship Urban Galdino Father Health Care Agent Teresa Blackmon Mother Health Care Agent
--- OUTSIDE RECORDS SUMMARY | 2020-06-15 22:44 | XMS REPORT | Summary of Care ---
:1995 Author Organization [facility] Address [address] [place] [address] Care Team Providers Name Role Phone Johanny Mcintosh Primary Care Provider Reason for Visit Reason Comments STD Testing Encounter Details Date Type Department Care Team Description [facility]/13[facility] for other contraceptive management (Primary Dx); LESLIE Loera Screen for STD (sexually transmitted dis ease); 1108 [facility] [address] [place], [place] [phone] Allergies Active Allergy [...] asymptomatic bacteriuria 05/22/201512/07 Overview: ICD10 Diagnosis Term Professional Security Officer Utility High-risk 05/22/2015 12/25/2015 Overview: ICD10 Diagnosis Term Professional Security Officer Utility History of palpitations 05/22/2015 12/25/2015 Need for prophylactic vaccination with combined 05/22/2015 12/25/2015 gqhebwuqvj-zxovcxy-kkddxiosq (DTP) vaccine Rh negative state in antepartum [...] file Gets together: Not on file Attends buddhism service: Not on file Active member of [...] lives at home with parents. Patient is mandaeism. Social History Substance and Sexual Activity Sexual [...] OB Satellites Kenzie Mcintosh WHCNP [address] [address] [phone] Name Type Priority Associated Diagnoses Date/Ti me [...] Address Typ e / Group Dates [facility] [id number] 2017-Pres [phone] [address] Medicaid WOMEN ent [address] [place] [address] documented as of this encounter Advance Directives Name Relationship Healthcare Agent Communication Relationship Urban Galdino Father Health Care Agent Teresa Blackmon Mother Health Care Agent
--- OUTSIDE RECORDS SUMMARY | 2020-06-15 22:44 | XMS REPORT | Summary of Care ---
:1995 Author Organization [facility] - Health Address [address] [place] [address] Care Team Providers Name Role Phone Johanny Mcintosh [facility] Provider Encounter Details Date Type Department Care Team Description 06/13/2020 Orders Only [facility] Doctor Unassigned, No 301 [facility] [place] [address] [address] [place] [address] Allergies Active Allergy Reactions Severity Noted Date [...] asymptomatic bacteriuria 05/22/201512/07 Overview: ICD10 Diagnosis Term Gold Frame Assembler Utility High-risk 05/22/2015 12/25/2015 Overview: ICD10 Diagnosis Term Gold Frame Assembler Utility History of palpitations 05/22/2015 12/25/2015 Need for prophylactic vaccination with combined 05/22/2015 12/25/2015 fhuxyxueef-pesebdj-dsdidrexc (DTP) vaccine Rh negative state in antepartum [...] Assigned at Date Recorded Not on file documented as of this encounter Last Filed Vital Signs Not on filedocumented in this encounter Plan of Treatment Date Type Specialty Care Team Description 08/01/2020 Office Visit [facility]ell[facility] Mcintosh[facility] [address] [place], [place] [address] [phone] Health Maintenance Due Date Last Done Comments [...] encounter Procedures Procedure Name Priority Date/Time Associated Diagnosis Comme nts CONSENT/REFUSAL FOR Routine 06/13/2020 11:05 AM CDT DIAGNOSIS AND TREATMENT documented in this encounter Results Not on filedocumented in this encounter Insurance Payer Benefit Plan Subscriber ID Effective Phone Address Typ e / Group Dates [facility] [id number] 2017-Pres [phone] [address] Medicaid WOMEN ent [address] [place] [address] documented as of this encounter Advance Directives Name Relationship Healthcare Agent Communication Relationship Urban Galdino Father Health Care Agent Teresa Blackmon Mother Health Care Agent
== END 2020-06-15 01:13 | disposition home or self-care (01) ==
LOC: ER 23:22
DX: M54.5 Low back pain (principal); Z88.2 Allergy status to sulfonamides
CPT/HCPCS: 72100; 81003; 81025; 96372; 99284

== ENCOUNTER 2020-08-21 12:29 | Emergency (ER) | payer OTHER ==
--- OUTSIDE RECORDS SUMMARY | 2020-08-21 12:31 | XMS REPORT | Summary of Care ---
:1995 Author Organization [facility] - Health Address [address] [place] [address] Care Team Providers Name Role Phone Johanny Mcintosh [facility] Primary Care Provider Encounter Details Date Type Department Care Team Description 06/13/2020 Orders Only [facility] Doctor Unassigned, No 301 [facility] [place] [address] [address] [place] [address] Allergies Active Allergy Reactions Severity Noted Date [...] asymptomatic bacteriuria 05/22/201512/07 Overview: ICD10 Diagnosis Term Technical Operations Specialist Utility High-risk 05/22/2015 12/25/2015 Overview: ICD10 Diagnosis Term Technical Operations Specialist Utility History of palpitations 05/22/2015 12/25/2015 Need for prophylactic vaccination with combined 05/22/2015 12/25/2015 rrkonbbruc-xhihwxo-mrajigtaw (DTP) vaccine Rh negative state in antepartum [...] 08/01/2020 Office Visit [facility] Satellites Kenzie Mcintosh, [facility] [address] [place], [place] [address] [phone] Health Maintenance Due Date Last Done Comments [...] Typ e / Group Dates [facility] [id number] 2017-Pres [phone] [address] Medicaid WOMEN ent [address] [place] [address] documented as of this encounter Advance Directives Name Relationship Healthcare Agent Communication Relationship Urban Galdino Father Health Care Agent Teresa Blackmon Mother Health Care Agent
--- OUTSIDE RECORDS SUMMARY | 2020-08-21 12:31 | XMS REPORT | Continuity of Care Document ---
:1995 Author Organization [facility] t Address [address] [place] [address] Care Team Providers Name Role Phone Michelle CANDELARIA, F Attending Clinician Doctor Unassigned, Name Attending Clinician Unavailable Johanny Wiseman Attending Clinician Problems This patient has no known problems. Allergies, Adverse Reactions, Alerts This patient has no known allergies or adverse reactions. Medications This patient has no known medications. Procedures This patient has no known procedures. Encounters Start End Encounter Admission Attending Care Care Encounter Source Date/Time Date/Time Type Type Clinicians Facility Department ID 2020-08-14 2020-08-14 Emergency Michelle [facility] [id number] 19:43:00 21:26:00 Yony Kapoor [id number] [place] [id number] Jb[facility] [id number] 2020-08-14 2020-08-14 Orders Doctor GABY [id number] 00:00:00 00:00:00 Only UnassignedCECY [id number] [place] [facility] [id number] 2020-07-18 2020-07-18 Office Dayna [facility] [id number] 09:12:55 09:59:16 Visit Soledad Orlando PARKING ENFORCEMENT TECHNICIAN [id number] MATERNAL [id number] & CHILD [address] [place] [address] Results This patient has no known results.
--- OUTSIDE RECORDS SUMMARY | 2020-08-21 12:32 | XMS REPORT | Summary of Care ---
:1995 Author Organization [facility] Address [address] [place] [address] Care Team Providers Name Role Phone Johanny Mcintosh Primary Care Provider Reason for Visit Reason Comments STD Testing Encounter Details Date Type Department Care Team Description [facility] for other contraceptive management (Primary Dx); LESLIE Loera Screen for STD (sexually transmitted dis ease); 1108 [facility] [address] [place], [place] [phone] Allergies Active Allergy [...] asymptomatic bacteriuria 05/22/201512/07 Overview: ICD10 Diagnosis Term Investment Banking Analyst Utility High-risk 05/22/2015 12/25/2015 Overview: ICD10 Diagnosis Term Investment Banking Analyst Utility History of palpitations 05/22/2015 12/25/2015 Need for prophylactic vaccination with combined 05/22/2015 12/25/2015 ajxyrszivi-qmphefv-oyjltogxy (DTP) vaccine Rh negative state in antepartum [...] file Gets together: Not on file Attends jehovah's witness service: Not on file Active member of [...] lives at home with parents. Patient is caodaism. Social History Substance and Sexual Activity Sexual [...] OB Satellites Kenzie Mcintosh WHCNP [address] [address] [phone] Name Type Priority Associated Diagnoses Date/Ti me [...] Address Typ e / Group Dates [facility] [id number] 2017-Pres [phone] Medicaid WOMEN ent [address] [place] [address] documented as of this encounter Advance Directives Name Relationship Healthcare Agent Communication Relationship Urban Galdino Father Health Care Agent Teresa Blackmon Mother Health Care Agent
--- OUTSIDE RECORDS SUMMARY | 2020-08-21 12:32 | XMS REPORT | Summary of Care ---
:1995 Author Organization [facility] Address [address] [place] [address] Care Team Providers Name Role Phone Johanny Mcintosh Primary Care Provider Reason for Visit Reason Comments Results Prescription salinat / Lico Hitchcock Encounter Details Date Type Department Care Team Description 06/15/2020 Telephone [facility]- Soledad Mcintosh Res; Prescription LESLIE Loera (salinat / Lico Hitchcock) [address] [facility] [address] [place], [place] [phone] Allergies Active Allergy Reactions Severity Noted Date Comments Sulfa (Sulfonamide Antibiotics) Rash 6 documented as of this encounter (statuses as of 06/16/2020) Medications Medication Sig Dispensed Refills Start Date End Date Status metroNIDAZOLE 500 mg Take 1 tablet by 14 tablet 0 06/26/2019 Active tabletIndications: mouth 2 (two) Pelvic pain times daily. metroNIDAZOLE Insert 1 70 g 2 09/07/2019 Activ e (METROGEL VAGINAL) Applicator into 0.75 % vaginal vagina 2 (two) gelIndications: times per week Vaginal discharge for Other (BV). For 3 to 6 months metroNIDAZOLE 500 mg Take 4 tablets by 4 tablet 0 06/15/2020 06/15/2020 tabletIndications: mouth once now Trichomonal for 1 dose. vulvovaginitis documented as of this encounter (statuses as of 06/16/2020) Active Problems Problem Noted Date Trichomonal vulvovaginitis 02/17/2019 IUD strings lost 12/03/2018 Vaginal yeast infection 03/10/2018 Chlamydia infection 12/25/2017 IUD (intrauterine device) in place 11/05/2017 Contraceptive management 06/27/2016 Metrorrhagia 06/27/2016 Well woman exam 12/25/2015 Nexplanon removal 12/25/2015 Overview: Placed 12/2015, removed 07/2018 documented as of this encounter (statuses as of 06/16/2020) Resolved Problems Problem Noted Date Resolved Date Screening for STD (sexually transmitted disease) 06/27/2016 08/06/2017 Overweight 12/25/2015 08/06/2017 Liveborn , of mathur , born in hospital by 07/30/2015 12/14/2015 vaginal delivery 39 weeks gestation of 07/28/2015 12/14/19 16 Group B streptococcal bacteriuria 06/05/20152015 Antepartum asymptomatic bacteriuria 05/22/201512/07 Overview: ICD10 Diagnosis Term Software Asset Manager Utility High-risk 05/22/2015 12/25/2015 Overview: ICD10 Diagnosis Term Software Asset Manager Utility History of palpitations 05/22/2015 12/25/2015 Need for prophylactic vaccination with combined 05/22/2015 12/25/2015 bzecdfihtx-xgsstko-nmpeegwmk (DTP) vaccine Rh negative state in antepartum period, third trimester, fet us 05/22/2015 12/25/2015 1 BV (bacterial vaginosis) 11/11/2014 06/05/2015 General counseling for initiation of other contraceptive 02/201506/05/2015 measures Rubella immune 11/11/2014 12/25/2015 documented as of this encounter (statuses as of 06/16/2020) Immunizations Name Administration Dates Next Due DTAP [...] Signs Not on filedocumented in this encounter Miscellaneous Notes Telephone Encounter - Elys Burns LVN - 06/16/2020 10:01 AM CDTNotified the patient of her positive STI results trichomonas. Notified the patient her medication has been sent to her pharmacy on file. Educated patient she should complete the entire course, advised patient to practice safe sex practices and to remain abstinent for at least 1-2 weeks post treatment. Patient declines to have partner treated, stated he will get treated somewhere else. Telephone Encounter - Soledad Mcintosh WHCNP - 06/15/2020 4:34 PM CDT Please notify the patient of her positive STI results.TRICH Please notify the patient her medicationhas been sent to her pharmacy on file. She should complete the entire course.Please advise her on safe sex practices and to remain abstinent for at least 1-2 weeks post treatment. Her partner can be treated and tested per protocol. If she is not she will need a JIAN in 3 months, and advise mana HIV testing if she has not recently been tested. LESLIE Chinchilla 06/15/2020 4:34 PM Telephone Encounter - Adriana Blanca - 06/15/2020 3:17 PM CDTPatient calling to see if her Rx can be called in to [facility] pharmacy in [facility]. Please call. elephone Encounter - Ryanne Lujan - 06/15/2020 3:13 PM CDTNicole Wesley Baker is a 24 year old female Patient requesting to speak with nurse regarding results, please call patient [phone] (home) documented in this encounter Plan of Treatment Date Type Specialty Care Team Description 08/01/2020 Office Visit [facility] Satellites Kenzie Mcintosh WHCNP [address] [place] [address] [phone] Health Maintenance Due Date Last Done Comments MENINGOCOCCAL B VACCINES (1 06/28/2020 Post poned from of 2 - Risk Bexsero 2-dose 07/08 (Refused) series) Depression Screening 06/29/2020 06/29/2019 PAP SMEAR 08/06/2020 08/06/2017 INFLUENZA VACCINE (#1) 2021 Postponed from 05/09/2020 (Refu sed) CHLAMYDIA SCREENING 06/13/2021 06/13/2020, 02/29/2020, 02/04/2020, Additional history exists DTaP,Tdap,and Td Vaccines 05/22/2025 05/22/2015, 09/08/2011 , (4 - Td) 08/19/2007 VARICELLA VACCINES Discontinued 08/19/2007 HPV VACCINES Completed 08/06/2017, 08/19/2007 PNEUMOCOCCAL 0-64 YEARS Aged Out No longe r eligible COMBINED SERIES based on patient 's age to complete this topic documented as of this encounter Results Not on filedocumented in this encounter Visit Diagnoses Diagnosis Trichomonal vulvovaginitis - Primary documented in this encounter Insurance Payer Benefit Plan Subscriber ID Effective Phone Address Typ e / Group Dates [facility] [id number] 2017-Pres [phone] Medicaid WOMEN ent [id number] [place] [address] documented as of this encounter Advance Directives Name Relationship Healthcare Agent Communication Relationship Urban Ahmadi Father Health Care Agent Teresa Blackmon Mother Health Care Agent
--- OUTSIDE RECORDS SUMMARY | 2020-08-21 12:32 | XMS REPORT | Summary of Care ---
:1996 Author Organization [facility] Address [address] [place] [address] Care Team Providers Name Role Phone Johanny Mcintosh Primary Care Provider Reason for Visit Reason Comments STD Testing Encounter Details Date Type Department Care Team Description 06/13/2020 [facility] for other contraceptive management (Primary Dx); LESLIE Loera Screen for STD (sexually transmitted dis ease); 110[address] [facility] [address] [place], [place] [phone] Allergies Active Allergy [...] asymptomatic bacteriuria 05/22/201512/07 Overview: ICD10 Diagnosis 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 Patient is muslim. Social History Substance and Sexual Activity Sexual [...] OB Satellites Kenzie Mcintosh WHCNP [address] [address] [phone] Name Type Priority Associated Diagnoses Date/Ti me [...] Address Typ e / Group Dates [facility] [id number] 2017-Pres [phone] [address] Medicaid WOMEN ent [address] [place] [address] documented as of this encounter Advance Directives Name Relationship Healthcare Agent Communication Relationship Urban Galdino Father Health Care Agent Teresa Blakcmon Mother Health Care Agent
--- OUTSIDE RECORDS SUMMARY | 2020-08-21 12:32 | XMS REPORT | Summary of Care ---
:1995 Author Organization [facility] Address [address] [place] [address] Care Team Providers Name Role Phone Johanny Mcintosh Primary Care Provider Reason for Visit Reason Comments STD Testing Encounter Details Date Type Department Care Team Description [facility] for other contraceptive management (Primary Dx); LESLIE Loera Screen for STD (sexually transmitted dis ease); 1108 [facility] [address] [place], [place] [phone] Allergies Active Allergy [...] asymptomatic bacteriuria 05/22/201512/07 Overview: ICD10 Diagnosis Term Atm Servicer Utility High-risk 05/22/2015 12/25/2015 Overview: ICD10 Diagnosis Term Atm Servicer Utility History of palpitations 05/22/2015 12/25/2015 Need for prophylactic vaccination with combined 05/22/2015 12/25/2015 oeopeyqvbq-twabrid-zqecerzyy (DTP) vaccine Rh negative state in antepartum [...] file Gets together: Not on file Attends spiritism service: Not on file Active member of [...] lives at home with parents. Patient is hoahaoism. Social History Substance and Sexual Activity Sexual [...] OB Satellites Kenzie Mcintosh WHCNP [address] [address] [phone] Name Type Priority Associated Diagnoses Date/Ti me [...] e / Group Dates [facility] [id number] 2017-Pres [phone] [address] Medicaid WOMEN ent 00 [id number] [place] [address] documented as of this encounter Advance Directives Name Relationship Healthcare Agent Communication Relationship Urban Ahmadi Father Health Care Agent Teresa Blackmon Mother Health Care Agent
--- OUTSIDE RECORDS SUMMARY | 2020-08-21 12:32 | XMS REPORT | Summary of Care ---
:1995 Author Organization [facility] Address [address] [place] [address] Care Team Providers Name Role Phone Johanny Mcintosh Primary Care Provider Reason for Visit Reason Comments Results Prescription sailnat / Lico Hitchcock Encounter Details Date Type Department Care Team Description 06/15/2020 Telephone [facility]- Soledad Mcintosh Res; Prescription LESLIE Loera (salinat / Lico Hitchcock) 110[address] [facility] [address] [place], [place] [phone] Allergies Active Allergy Reactions Severity Noted Date Comments Sulfa (Sulfonamide Antibiotics) Rash 6 documented as of this encounter (statuses as of 06/15/2020) Medications Medication Sig Dispensed Refills Start Date [...] tablets by 4 tablet 0 06/15/2020 06/15/2020 Active tabletIndications: mouth once now Trichomonal for 1 dose. vulvovaginitis documented as of this encounter (statuses as of 06/15/2020) Active Problems Problem Noted Date Trichomonal vulvovaginitis 02/17/2019 IUD strings lost 12/03/2018 Vaginal yeast infection 03/10/2018 Chlamydia infection 12/25/2017 IUD (intrauterine device) in place 11/05/2017 Contraceptive management 06/27/2016 Metrorrhagia 06/27/2016 Well woman exam 12/25/2015 Nexplanon removal 12/25/2015 Overview: Placed 12/2015, removed 07/2018 documented as of this encounter (statuses as of 06/15/2020) Resolved Problems Problem Noted Date Resolved Date Screening for STD (sexually transmitted disease) 06/27/2016 08/06/2017 Overweight 12/25/2015 08/06/2017 Liveborn , of mathur , born in hospital by 07/30/2015 12/14/2015 vaginal delivery 39 weeks gestation of 07/28/2015 12/14/19 16 Group B streptococcal bacteriuria 06/05/20152015 Antepartum asymptomatic bacteriuria 05/22/201512/07 Overview: ICD10 Diagnosis 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 High-risk 05/22/2015 12/25/2015 Overview: ICD10 Diagnosis 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 History of palpitations 05/22/2015 12/25/2015 Need for prophylactic vaccination with combined 05/22/2015 12/25/2015 tsrcirsucd-qzxofcu-twecuaype (DTP) vaccine Rh negative state in antepartum period, third trimester, fet us 05/22/2015 12/25/2015 1 BV (bacterial vaginosis) 11/11/2014 06/05/2015 General counseling for initiation of other contraceptive 02/201506/05/2015 measures Rubella immune 11/11/2014 12/25/2015 documented as of this encounter (statuses as of 06/15/2020) Immunizations Name Administration Dates Next Due DTAP [...] this encounter Miscellaneous Notes Telephone Encounter - Soledad Mcintosh WHCNP - [...] her Rx can be called in to [facility] pharmacy in [facility]. Please call. elephone Encounter - Ryanne Lujan - 06/15/2020 3:13 PM CDTCindy Wesley Baker is a 24 year old female Patient requesting to speak with nurse regarding results, please call patient [phone] (home) documented in this encounter Plan of Treatment Date Type Specialty Care Team Description 08/01/2020 Office Visit [facility], [facility]oseluis [place] [address] [place], [place] [address] [phone] Health Maintenance Due Date Last Done Comments [...] Phone Address Typ e / Group Dates [facility] [id number] 2017-Pres [phone] [address] Medicaid WOMEN ent [address] [place] [address] documented as of this encounter Advance Directives Name Relationship Healthcare Agent Communication Relationship Urban Ahmadi Father Health Care Agent Teresa Blackmon Mother Health Care Agent
--- OUTSIDE RECORDS SUMMARY | 2020-08-21 12:33 | XMS REPORT | Summary of Care ---
:1995 Author Organization [facility] Address [address] [place] [address] Care Team Providers Name Role Phone Johanny Mcintosh Primary Care Provider Reason for Visit Reason Comments STD PAP Encounter Details Date Type Department Care Team Description [facility] for other contraceptive management (Primary Dx); LESLIE Loera IUD (intrauterine device) in place; [address] [place] [address] [facility] [address] Screen for STD (sexually transmitted dis ease) [facility] [place], [place] [phone] Allergies Active Allergy Reactions Severity Noted Date Comments Sulfa (Sulfonamide Antibiotics) Rash 6 documented as of this encounter (statuses as of 07/18/2020) Medications Medication Sig Dispensed Refills Start Date [...] as of this encounter (statuses as of 07/18/2020) Active Problems Problem Noted Date Trichomonal vulvovaginitis 02/17/2019 IUD strings lost 12/03/2018 Vaginal yeast infection 03/10/2018 Chlamydia infection 12/25/2017 IUD (intrauterine device) in place 11/05/2017 Contraceptive management 06/27/2016 Metrorrhagia 06/27/2016 Well woman exam 12/25/2015 Nexplanon removal 12/25/2015 Overview: Placed 12/2015, removed 07/2018 documented as of this encounter (statuses as of 07/18/2020) Resolved Problems Problem Noted Date Resolved Date Screening for STD (sexually transmitted disease) 06/27/2016 08/06/2017 Overweight 12/25/2015 08/06/2017 Liveborn infant, of mathur , born in hospital by 07/30/2015 12/14/2015 vaginal delivery 39 weeks gestation of 07/28/2015 12/14/19 16 Group B streptococcal bacteriuria 06/05/20152015 Antepartum asymptomatic bacteriuria 05/22/201512/07 Overview: ICD10 Diagnosis 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 Utility High-risk 05/22/2015 12/25/2015 Overview: ICD10 Diagnosis 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 Utility History of palpitations 05/22/2015 12/25/2015 Need for prophylactic vaccination with combined 05/22/2015 12/25/2015 sxnznblbke-hwilezz-zkntuxssk (DTP) vaccine Rh negative state in antepartum period, third trimester, fet us 05/22/2015 12/25/2015 1 BV (bacterial vaginosis) 11/11/2014 06/05/2015 General counseling for initiation of other contraceptive 02/201506/05/2015 measures Rubella immune 11/11/2014 12/25/2015 documented as of this encounter (statuses as of 07/18/2020) Immunizations Name Administration Dates Next Due DTAP [...] been in contact with No / Unsure 07/18/2020 9:32 AM SERVICES ACCOUNT MANAGER someone who was confirmed or suspected to have Coronavirus / COVID-19? documented as of this encounter Last Filed Vital Signs Vital Sign Reading Time Taken Comments Blood Pressure 118/76 07/18/2020 9:33 AM SERVICES ACCOUNT MANAGER Pulse 85 07/18/2020 9:33 AM SERVICES ACCOUNT MANAGER Temperature 36.8 C (98.2 F) 07/18/2020 9:33 AM SERVICES ACCOUNT MANAGER Respiratory Rate 16 07/18/2020 9:33 AM SERVICES ACCOUNT MANAGER Oxygen Saturation - - Inhaled Oxygen Concentration - - Weight 60.1 kg (132 lb 8 oz) 07/18/2020 9:33 AM SERVICES ACCOUNT MANAGER Height 157.5 cm (5' 2") 07/18/2020 9:33 AM SERVICES ACCOUNT MANAGER Body Mass Index 24.23 07/18/2020 9:33 AM SERVICES ACCOUNT MANAGER documented in this encounter Progress Notes Soledad Mcintosh, WHCNP - 07/18/2020 9:00 AM CST Chief complaint: Chief Complaint Patient presents with STD PAP HPI: the patient is here today for STD screening. She reports she is doing well today and denies having any issues or concerns. She reports that on her last visit her labs were posotive for trich and she had a presumptive positive for HIV. So she desires repeat labs on today. Histories OB History Para Term AB Living [...] file Gets together: Not on file Attends baptist service: Not on file Active member of [...] lives at home with parents. Patient is judaism. Social History Substance and Sexual Activity Sexual Activity Yes Partners: Male control/protection: I.U.D. Comment: last entercourse 02/28/2020 Labs Labs are pending. and Office Visit on 06/13/2020 Component Date Value POCT PH U 06/13/2020 8 POCT U LEUK EST 06/13/2020 Trace POCT U NIT 06/13/2020 Neg POCT U PROT 06/13/2020 Trace POCT U GLU 06/13/2020 Neg POCT U KETONE 06/13/2020 None POCT U BLD 06/13/2020 Neg C. trachomatis Nucleic A* 06/13/2020 Negative N. gonorrhoeae Nucleic A* 06/13/2020 Negative HIV 1/2 Ag-Ab with Reflex 06/13/2020 Reactive* HIV Semi-quantitative 06/13/2020 1.87 Trichomonas Nucleic Acid 06/13/2020 Positive* URINE CULTURE 06/13/2020 No aerobic organisms isolated HIV Supplemental Confirm* 06/13/2020 Presumptive Negative/Indeterminate HIV-1 Ab Confirmation 06/13/2020 Negative HIV-2 Ab Confirmation 06/13/2020 Negative HIV-1 RNA QUALITATIVE TMA 06/13/2020 Not Detected Radiology No new radiology. Allergies Cindy is allergic to sulfa (sulfonamide antibiotics). Medications Cindy has a current medication list which includes the following prescription(s): metronidazole andmetronidazole. Review of Systems Constitutional: Negative. HENT: Negative. Eyes: Negative. Respiratory: Negative. Breasts: Negative. Cardiovascular: Negative. Gastrointestinal: Negative. Genitourinary: Negative. Musculoskeletal: Negative. Skin: Negative. Neurological: Negative. Psychiatric/Behavioral: Negative. Endocrine: Endocrine negative BP 118/76 (BP Location: Right arm, Patient Position: Sitting, BP CUFF SIZE: Adult Medium) | Pulse 85 | Temp 36.8 C (98.2 F) (Oral) | Resp 16 | Ht 5' 2" (1.575 m) | Wt 132 lb 8 oz (60.1 kg) | BMI 24.23 kg/m Pregravid BMI: Could not be calculated [...] ulceration present. Assessment/Plan Return to clinic in 7 months for WWE or sooner as needed Encounter for other contraceptive management (primary encounter diagnosis) IUD (intrauterine device) in place Comment: pleased Plan: as needed mgtm Screen for STD (sexually transmitted disease) Comment: routine Plan: TRICHOMONAS AMPLIFIED ASSAY, HIV 1/2 AG-AB WITH REFLEX This visit did not involve counseling and coordination that comprised more than 50% of the visit time. LESLIE Chinchilla 07/18/2020 10:08 AM ICES ACCOUNT MANAGER documented in this encounter Plan of Treatment Date Type Specialty Care Team Description 02/28/2021 Office Visit OB Satellites Kenzie Mcintosh WHCNP [address] [place], [place] [address] [phone] Name Type Priority Associated Diagnoses Date/Ti me TRICHOMONAS AMPLIFIED LAB Routine Screen for STD (sex ually 07/18/2020 9:58 AM ASSAY transmitted disease) SERVICES ACCOUNT MANAGER HIV 1/2 AG-AB WITH REFLEX LAB Routine Screen for STD (sexually 07/18/2020 9:58 AM transmitted disease) SERVICES ACCOUNT MANAGER Health Maintenance Due Date Last Done Comments Depression Screening 2008 PAP SMEAR 08/06/2020 08/06/2017 INFLUENZA VACCINE (#1) [...] ease) Screening examination for venereal disea se documented in this encounter Insurance Payer Benefit Plan Subscriber ID Effective Phone Address Typ e / Group Dates [facility] [id number] 2017-Pres [phone] [address] Medicaid WOMEN ent [address] [place] [address] documented as of this encounter Advance Directives Name Relationship Healthcare Agent Communication Relationship Urban Ahmadi Father Health Care Agent Teresa Blackmon Mother Health Care Agent
--- OUTSIDE RECORDS SUMMARY | 2020-08-21 12:33 | XMS REPORT | Summary of Care ---
:1995 Author Organization [facility] Address [address] [place] [address] Care Team Providers Name Role Phone Johanny Mcintosh Primary Care Provider Encounter Details Date Type Department Care Team Description 08/14/2020 Orders Only [facility] Doctor Unassigned, No [address] [facility] [place] [address] [address] [place] [address] Allergies Active Allergy Reactions Severity Noted Date Comments Sulfa (Sulfonamide Antibiotics) Rash 6 documented as of this encounter (statuses as of 08/14/2020) Medications Medication Sig Dispensed Refills Start Date [...] as of this encounter (statuses as of 08/14/2020) Active Problems Problem Noted Date Trichomonal vulvovaginitis 02/17/2019 IUD strings lost 12/03/2018 Vaginal yeast infection 03/10/2018 Chlamydia infection 12/25/2017 IUD (intrauterine device) in place 11/05/2017 Contraceptive management 06/27/2016 Metrorrhagia 06/27/2016 Well woman exam 12/25/2015 Nexplanon removal 12/25/2015 Overview: Placed 12/2015, removed 07/2018 documented as of this encounter (statuses as of 08/14/2020) Resolved Problems Problem Noted Date Resolved Date Screening for STD (sexually transmitted disease) 06/27/2016 08/06/2017 Overweight 12/25/2015 08/06/2017 Liveborn infant, of mathur , born in hospital by 07/30/2015 12/14/2015 vaginal delivery 39 weeks gestation of 07/28/2015 12/14/19 16 Group B streptococcal bacteriuria 06/05/20152015 Antepartum asymptomatic bacteriuria 05/22/201512/07 Overview: ICD10 Diagnosis 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 High-risk 05/22/2015 12/25/2015 Overview: ICD10 Diagnosis 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 History of palpitations 05/22/2015 12/25/2015 Need for prophylactic vaccination with combined 05/22/2015 12/25/2015 ftbwenesuo-pslbjhy-molzohykk (DTP) vaccine Rh negative state in antepartum period, third trimester, fet us 05/22/2015 12/25/2015 1 BV (bacterial vaginosis) 11/11/2014 06/05/2015 General counseling for initiation of other contraceptive 02/201506/05/2015 measures Rubella immune 11/11/2014 12/25/2015 documented as of this encounter (statuses as of 08/14/2020) Immunizations Name Administration Dates Next Due DTAP [...] with No / Unsure 07/18/2020 9:32 AM SAP TRAINER someone who was confirmed or suspected to have Coronavirus / COVID-19? documented as of this encounter Last Filed Vital Signs Not on filedocumented in this encounter Plan of Treatment Date Type Specialty Care Team Description 02/28/2021 Office Visit OB Satellites Kenzie Mcintosh, [facility] [address] [place], [place] [address] [phone] Health Maintenance Due Date Last Done Comments [...] Associated Diagnosis Comme nts CONSENT/REFUSAL FOR Routine 08/14/2020 7:35 PM SAP TRAINER DIAGNOSIS AND TREATMENT documented in this encounter Results Not on filedocumented in this encounter Insurance Payer Benefit Plan Subscriber ID Effective Phone Address Typ e / Group Dates [facility] [id number] 2017-Pres [phone] [address] Medicaid WOMEN ent [address] [place] [address] documented as of this encounter Advance Directives Name Relationship Healthcare Agent Communication Relationship Urban Ahmadi Father Health Care Agent Teresa Blackmon Mother Health Care Agent
--- OUTSIDE RECORDS SUMMARY | 2020-08-21 12:33 | XMS REPORT | Summary of Care ---
:1995 Author Organization [facility] Address [address] [place] [address] Care Team Providers Name Role Phone Johanny Mcintosh [facility] Primary Care Provider Reason for Visit Reason Comments Results Encounter Details Date Type Department Care Team Description [facility] [address] [place] [address] [address] [facility] [phone] [facility] [place], [place] [address] [phone] Allergies Active Allergy Reactions Severity Noted Date Comments Sulfa (Sulfonamide Antibiotics) Rash 6 documented as of this encounter (statuses as of 06/27/2020) Medications Medication Sig Dispensed Refills Start Date [...] as of this encounter (statuses as of 06/27/2020) Active Problems Problem Noted Date Trichomonal vulvovaginitis 02/17/2019 IUD strings lost 12/03/2018 Vaginal yeast infection 03/10/2018 Chlamydia infection 12/25/2017 IUD (intrauterine device) in place 11/05/2017 Contraceptive management 06/27/2016 Metrorrhagia 06/27/2016 Well woman exam 12/25/2015 Nexplanon removal 12/25/2015 Overview: Placed 12/2015, removed 07/2018 documented as of this encounter (statuses as of 06/27/2020) Resolved Problems Problem Noted Date Resolved Date Screening for STD (sexually transmitted disease) 06/27/2016 08/06/2017 Overweight 12/25/2015 08/06/2017 Liveborn infant, of mathur , born in hospital by 07/30/2015 12/14/2015 vaginal delivery 39 weeks gestation of 07/28/2015 12/14/19 16 Group B streptococcal bacteriuria 06/05/20152015 Antepartum asymptomatic bacteriuria 05/22/201512/07 Overview: ICD10 Diagnosis Term Tack Cutter Utility High-risk 05/22/2015 12/25/2015 Overview: ICD10 Diagnosis Term Tack Cutter Utility History of palpitations 05/22/2015 12/25/2015 Need for prophylactic vaccination with combined 05/22/2015 12/25/2015 higkgkseaf-mneckky-gefwwlmmh (DTP) vaccine Rh negative state in antepartum period, third trimester, fet us 05/22/2015 12/25/2015 1 BV (bacterial vaginosis) 11/11/2014 06/05/2015 General counseling for initiation of other contraceptive 02/201506/05/2015 measures Rubella immune 11/11/2014 12/25/2015 documented as of this encounter (statuses as of 06/27/2020) Immunizations Name Administration Dates Next Due DTAP [...] this encounter Miscellaneous Notes Telephone Encounter - Liliam Rosenberg RN - 06/27/2020 1:26 PM CDTCalled patient, patient has question regarding HIV results. Explained confirmatory is negative, patient to come back in 4 weeks for repeat HIV at pap only visit. Patient verbalized understanding. LILIAM ROSENBERG RN 06/27/2020 1:26 PM Telephone Encounter - Vidya Knox - 06/27/2020 11:20 AM CDTPatient calling for lab results. Please call back documented in this encounter Plan of Treatment Date Type Specialty Care Team Description 07/18/2020 Office Visit OB Satellites Kenzie Mcintosh, [facility] [address], [place] [address] [phone] Health Maintenance Due Date Last Done Comments [...] Address Typ e / Group Dates [facility] [id number] 2017-Pres [phone] Medicaid WOMEN ent [address] [place] [address] documented as of this encounter Advance Directives Name Relationship Healthcare Agent Communication Relationship Urban Ahmadi Father Health Care Agent Teresa Blackmon Mother Health Care Agent
--- OUTSIDE RECORDS SUMMARY | 2020-08-21 12:33 | XMS REPORT | Summary of Care ---
:1995 Author Organization [facility] Address [address] [place] [address] Care Team Providers Name Role Phone Johanny Mcintosh Primary Care Provider Reason for Visit Reason Comments STD PAP Encounter Details Date Type Department Care Team Description [facility] for other contraceptive management (Primary Dx); LESLIE Loera IUD (intrauterine device) in place; [address] [facility] [address] Screen for STD (sexually transmitted dis ease) [facility] [place], [place] [phone] Allergies Active Allergy Reactions Severity Noted Date [...] asymptomatic bacteriuria 05/22/201512/07 Overview: ICD10 Diagnosis Term Cable Lacer Utility High-risk 05/22/2015 12/25/2015 Overview: ICD10 Diagnosis Term Cable Lacer Utility History of palpitations 05/22/2015 12/25/2015 Need for prophylactic vaccination with combined 05/22/2015 12/25/2015 qkkpodbduc-xsntikn-ixzpvoahi (DTP) vaccine Rh negative state in antepartum [...] with No / Unsure 07/18/2020 9:32 AM MEXICAN FOOD COOK someone who was confirmed or suspected to have Coronavirus / COVID-19? documented as of this encounter Last Filed Vital Signs Vital Sign Reading Time Taken Comments Blood Pressure 118/76 07/18/2020 9:33 AM M[employer]ICAN FOOD COOK Pulse 85 07/18/2020 9:33 AM MEXICAN FOOD COOK Temperature 36.8 C (98.2 F) 07/18/2020 9:33 AM MEXICAN FOOD COOK Respiratory Rate 16 07/18/2020 9:33 AM MEXICAN FOOD COOK Oxygen Saturation - - Inhaled Oxygen Concentration - - Weight 60.1 kg (132 lb 8 oz) 07/18/2020 9:33 AM M[employer]ICAN FOOD COOK Height 157.5 cm (5' 2") 07/18/2020 9:33 AM [employer] Body Mass Index 24.23 07/18/2020 9:33 AM M[employer]ICAN FOOD COOK documented in this encounter Progress Notes Soledad [...] file Gets together: Not on file Attends druze service: Not on file Active member of [...] lives at home with parents. Patient is denominational. Social History Substance and Sexual Activity Sexual [...] visit time. LESLIE Chinchilla 07/18/2020 10:08 AM CAN FOOD COOK documented in this encounter Plan of Treatment Date Type Specialty Care Team Description 02/28/2021 Office Visit OB Satellites Kenzie Mcintosh [facility] [address] [place], [place] [address] [phone] Name Type Priority Associated Diagnoses Date/Ti me TRICHOMONAS AMPLIFIED LAB Routine Screen for STD (sex ually 07/18/2020 9:58 AM ASSAY transmitted disease) [employer] HIV 1/2 AG-AB WITH REFLEX LAB Routine Screen for STD (sexually 07/18/2020 9:58 AM transmitted disease) [employer] Health Maintenance Due Date Last Done Comments [...] Address Typ e / Group Dates [facility] [id number] 2017-Pres [phone] Medicaid WOMEN ent [address] [place] [address] documented as of this encounter Advance Directives Name Relationship Healthcare Agent Communication Relationship Urban Ahmadi Father Health Care Agent Teresa Blackmon Mother Health Care Agent
--- OUTSIDE RECORDS SUMMARY | 2020-08-21 12:34 | XMS REPORT | Summary of Care ---
:1995 Author Organization [facility] Address [address] [place] [address] Care Team Providers Name Role Phone Johanny Mcintosh Primary Care Provider Reason for Referral Other (STAT) Status Reason Specialty Diagnoses / Referred By Referred To Procedures Contact Contact New Request Diagnoses Sciatica of right side Alissa Espitia James C III, Procedures Discharge Follow-up: Specialty Provider MICHAEL LAL III; 3-5 Days FGAUTAMP [address] [place] [address] [address] [facility] [place] [phone] Phone: Reason for Visit Reason Comments SCIATICA Encounter Details Date Type Department Care Team Description 08/14/2020 Emergency [facility]-Emergency Alissa Espitia Sciatica of right side Department F, DISTRICT SERVICE MANAGER (Primary Dx) [address] [place] [address] [place], [place] [phone] Allergies Active Allergy Reactions Severity Noted Date [...] Other (BV). For 3 to 6 months ibuprofen 800 mg Take 1 tablet by 16 tablet 0 08/14/2020 Active tabletIndications: mouth every 6 Sciatica of right side (six) hours as needed for Pain (scale 4-6). traMADoL 50 mg Take 1 tablet by 15 tablet 0 08/14/2020 Active tabletIndications: mouth every 6 acute pain (six) hours as needed for Pain (scale 7-10). Indications: acute pain documented as of this encounter (statuses as [...] asymptomatic bacteriuria 05/22/201512/07 Overview: ICD10 Diagnosis Term Security Tester Utility High-risk 05/22/2015 12/25/2015 Overview: ICD10 Diagnosis Term Security Tester Utility History of palpitations 05/22/2015 12/25/2015 Need for prophylactic vaccination with combined 05/22/2015 12/25/2015 cqwtzxnvgw-gehprpz-qkjueyjhu (DTP) vaccine Rh negative state in antepartum [...] been in contact with No / Unsure 08/14/2020 7:35 PM VENDING ENTERPRISES SUPERVISOR someone who was confirmed or suspected to have Coronavirus / COVID-19? documented as of this encounter Last Filed Vital Signs Vital Sign Reading Time Taken Comments Blood Pressure 113/71 08/14/2020 7:40 PM VENDING ENTERPRISES SUPERVISOR Pulse 92 08/14/2020 7:40 PM VENDING ENTERPRISES SUPERVISOR Temperature 37 C (98.6 F) 08/14/2020 7:40 PM VENDING ENTERPRISES SUPERVISOR Respiratory Rate 18 08/14/2020 7:40 PM VENDING ENTERPRISES SUPERVISOR Oxygen Saturation 100% 08/14/2020 7:40 PM VENDING ENTERPRISES SUPERVISOR Inhaled Oxygen Concentration - - Weight 59.9 kg (132 lb) 08/14/2020 7:40 PM VENDING ENTERPRISES SUPERVISOR Height - - Body Mass Index 24.14 07/18/2020 9:33 AM VENDING ENTERPRISES SUPERVISOR documented in this encounter Discharge Instructions Alissa Smith, DISTRICT SERVICE MANAGER - 08/14/2020 You were seen today for Chief Complaint Patient presents with SCIATICA Your ER diagnosis was ICD-10-CM ICD-9-CM 1. Sciatica of right side M54.31 724.3 NO LIFE-THREATENING FINDINGS ON TODAY'S EXAM. YOUR PRESCRIPTIONS : Medication List START taking these medications ibuprofen 800 mg tablet Commonly known as: IBU Take 1 tablet by mouth every 6 (six) hours as needed for Pain (scale 4-6). traMADoL 50 mg tablet Commonly known as: ULTRAM Take 1 tablet by mouth every 6 (six) hours as needed for Pain (scale 7-10). Indications: acute pain ASK your doctor about these medications * metroNIDAZOLE 500 mg tablet Commonly known as: FLAGYL Take 1 tablet by mouth 2 (two) times daily. * metroNIDAZOLE 0.75 % vaginal gel Commonly known as: Metrogel VaginaL Insert 1 Applicator into vagina 2 (two) times per week for Other (BV). For 3 to 6 months * This list has 2 medication(s) that are the same as other medications prescribed for you. Read thedirections carefully, and ask your doctor or other care provider to review them with you. Where to Get Your Medications You can get these medications from any pharmacy Bring a paper prescription for each of these medications ibuprofen 800 mg tablet traMADoL 50 mg tablet ER precautions and follow up : 1. Return to ER if your symptoms should worsen or fail to improve within 72 hours. 2. The care provided in the emergency room was for acute problems only. 3. You should follow up with your primary care provider within 72 hours. 4. Fill and take all your medications as prescribed. 5. Make sure you are staying adequately hydrated. Busque attencion immediatamente si usted tiene los sitomas sigue, vuelve peor o si hay sitomas nuevas o para cualquiera preoccupacion incluyendo dolor del pecho, falta aire, se siente debile, mas fievre, mas dolor, nausea, vomitando, sangrando que no es normal, confusion, baja or pierdas conciencia. FOLLOW-UP RECOMMENDATIONS: RECOMMEND FOLLOW-UP WITH A PRIMARY CARE PROVIDER OR SPECIALIST IN 2-5 DAYS, ESPECIALLY IF NO IMPROVEMENT IN SYMPTOMS. MAY FOLLOW-UP WITH A PROVIDER OF YOUR CHOICE, SUCH : 1. A PHYSICIAN OF YOUR CHOICE 2. [facility], . LOCATIONS IN [facility] 3. [facility], [address], [place]; [phone] OR, IF YOU WISH TO FOLLOW-UP WITHIN THE [facility], MAY TRY THESE OPTIONS (CLINIC APPOINTMENTS AVAILABLE ON ODDI-HN-GOLH BASIS): 1. SCHEDULE AN APPOINTMENT ONLINE AT [facility] 2. OR CALL THE [facility] ACCESS C[facility] AT OR 3. OR CALL YOUR [facility] PHYSICIAN'S OFFICE DIRECTLY IF YOU ARE ALREADY AN ESTABLISHED [facility] PATIENT. AttachmentsThe following attachments cannot be sent through Care Everywhere. Sciatica (Wallisian)documented in this encounter ED Notes Denia Dsouza RN - 08/14/2020 7:39 PM CSTPatient arrived to the ed with c/o "sciatica" states this has been an ongoing issue for the patient;states that the pain has been ongoing x2 weeks. documented in this encounter Miscellaneous Notes ED Nurse Note - Jeane Valero, KEITH - 08/14/2020 9:22 PM CSTPt given printed and verbal discharge instructions regarding sciatica encouraged hydration, Prescriptions provided tramadol and ibuprohen Discussed ibuprofen and to take with food to avoid GI distress. Discussed tramadol side affects and to avoid driving/operating machinery/or engaging in activities requiring alertness while taking. Pt verbalized understanding of instructions, pt awake alert oriented, resp reg unlabored, skin w/d, color appropriate for race, moves all ext well,pt encouraged to follow up with pcp Advised to seek medical attention for new/prolonged/worsening of symptoms, No adverse reaction to meds given in ER noted upon discharge Awake, alert oriented, resp reg unlabored, skin w/d, pt leaving amb with steady gait, in no apparent distress, ING ENTERPRISES SUPERVISOR documented in this encounter Plan of Treatment Date Type Specialty Care Team Description 02/28/2021 Office Visit OB Satellites Kenzie Mcintosh, [facility] [address] [place] [address] [phone] Health Maintenance Due Date Last Done Comments [...] Procedure Name Priority Date/Time Associated Comments Diagnosis URINALYSIS STAT 08/14/2020 7:52 PM Sciatica of right Res ults for this VENDING ENTERPRISES SUPERVISOR side procedure are i n the results section. POCT TEST ZEE 08/14/2020 7:50 PM Sciatica of ri ght Results for this VENDING ENTERPRISES SUPERVISOR side procedure are i n the results section. NOTICE OF PRIVACY Routine 08/14/2020 7:40 PM PRACTICES VENDING ENTERPRISES SUPERVISOR documented in this encounter Results URINALYSIS (08/14/2020 7:52 PM VENDING ENTERPRISES SUPERVISOR) Pathologist Sig nature APPEARANCE Clear Clear [facility] COLOR Yellow Yellow [facility] PH 7.0 4.8 - 8.0 [facility] SP GRAVITY 1.014 1.003 - 1.030 [facility] GLU U QUAL Normal Normal [facility] BLOOD Negative Negative [facility] KETONES Negative Negative [facility] PROTEIN Negative Negative [facility] UROBILIN 2.0 mg/dL (A) Normal [facility] BILIRUBIN Negative Negative [facility] NITRITE Negative Negative [facility] LEUK ESPERANZA Negative Negative [facility] RBC/HPF <1 0 - 3 HPF [facility] WBC/HPF 4 0 - 5 HPF [facility] BACTERIA Negative Negative [facility] MUCOUS Slight (A) Negative LPF [facility] SQ EPITH 6 HPF [facility] Specimen Urine - URINE, CLEAN CATCH Performing Organization Address City/State/Zipcode Phone Number [facility] CLIA: [id number] [place] [address] POCT TEST (08/14/2020 7:50 PM VENDING ENTERPRISES SUPERVISOR) Pathologist Sig nature POCT PREG Negative On board controls acceptable Present with C Line POCT PREG LOT # [id number] POCT PREG TEST DATE 12/06/2021 Specimen Urine - URINE, CLEAN CATCH documented in this encounter Visit Diagnoses Diagnosis Sciatica of right side - Primary Sciatica documented in this encounter Administered Medications Medication Order MAR Action Action Date Dose Rate Site acetaminophen (TYLENOL) tablet Given 08/14/2020 8:38 PM VENDING ENTERPRISES SUPERVISOR 1,0 00 mg 1,000 mg 1,000 mg, Oral, ONCE, 1 dose, Fri08/14/20 at 2130, Routine ketorolac (TORADOL) Given 08/14/2020 8:39 PM 60 mg Right Dorsogluteal-IM injection 60 mg VENDING ENTERPRISES SUPERVISOR 60 mg, Intramuscular, ONCE, 1 dose, Fri08/14/20 at 2130, ZEE, membership solicitor approving Restricted medication: ALISSA ESPITIA documented in this encounter Advance Directives Name Relationship Healthcare Agent Communication Relationship Urban Ahmadi Father Health Care Agent Teresa Blackmno Mother Health Care Agent
[2020-08-21 15:13] LABS: Urine Blood 2+ (NEG); Urine Glucose NEGATIVE (NEG); Urine Protein TRACE (NEG); Urine Specific Gravity 1.025 (1.005-1.030)
--- NOTE | 2020-08-21 16:04 | RAD REPORT ---
EXAM DESCRIPTION: RAD - Chest Single View - 08/21/2020 3:56 pm CLINICAL HISTORY: FEVER Chest pain. COMPARISON: No comparisons FINDINGS: Portable technique limits examination quality. The lungs are grossly clear. The heart is normal in size. No displaced fractures. IMPRESSION: No acute intrathoracic process suspected.
--- NOTE | 2020-08-21 16:27 | EDPHYS ---
Physician Documentation [facility] Name: Cindy Baker Age: 25 yrs Sex: Female : 1995 Arrival Date: 08/21/2020 Time: 12:30 Bed 24 Private MD: ED Physician Mukund Melo HPI: 08/21 14:09 This 25 yrs old Black Female presents to ER via Ambulatory with complaints of Fever, jmm Nausea. 14:09 The patient reports fever, not measured (subjective). Onset: The symptoms/episode jmm began/occurred gradually, 1 week(s) ago. Modifying factors: there are no obvious modifying factors. Associated signs and symptoms: Pertinent negatives: cough, diarrhea, earache, hemoptysis, shortness of breath, sore throat. This is a 25 year old female with no chronic medical conditions that presents to the ED with complaints fever. Denies chest pain, cough, sob, sore throat, vomiting, diarrhea, abdominal pain, dysuria, vaginal discharge. . NIGHT SUPERVISOR: 13:10 LMP N/A - control method em Historical: - Allergies: 13:10 Sulfa (Sulfonamide Antibiotics); em - PMHx: 13:10 None; em - PSHx: 13:10 Hernia repair; em - Immunization history:: Adult Immunizations up to date. - Social history:: Smoking status: Reported history of juuling and/or vaping. ROS: 14:09 Cardiovascular: Negative for chest pain, palpitations, and edema, Respiratory: Negative jmm for shortness of breath, cough, wheezing, and pleuritic chest pain, Abdomen/GI: Negative for abdominal pain, nausea, vomiting, diarrhea, and constipation, Back: Negative for injury and pain, : Negative for injury, bleeding, discharge, and swelling, Neuro: Negative for headache, weakness, numbness, tingling, and seizure. 14:09 Constitutional: Positive for body aches, fever. 14:09 All other systems are negative. Exam: 14:09 Constitutional: This is a well developed, well nourished patient who is awake, alert, jmm and in no acute distress. Head/Face: atraumatic. Eyes: EOMI, no conjunctival erythema appreciated ENT: Moist Mucus Membranes Neck: Trachea midline, Supple Chest/axilla: Normal chest wall appearance and motion. Cardiovascular: Regular rate and rhythm. No edema appreciated Respiratory: Normal respirations, no respiratory distress appreciated Abdomen/GI: Non distended, soft Back: Normal ROM Skin: General appearance color normal MS/ Extremity: Moves all extremities, no obvious deformities appreciated, no edema noted to the lower extremities Neuro: Awake and alert, normal gait Psych: Behavior is normal, Mood is normal, Patient is cooperative and pleasant Vital Signs: 13:07 BP 122 / 91; Pulse 85; Resp 18; Temp 98.9; Pulse Ox 99% on R/A; Weight 59.87 kg; Height em 5 ft. 2 in. (157.48 cm); Pain 6/10; 13:07 Body Mass Index 24.14 (59.87 kg, 157.48 cm) em MDM: 14:09 Patient medically screened. [facility] 16:20 Data reviewed: vital signs, nurses notes. Counseling: I had a detailed discussion with rama the patient and/or guardian regarding: the historical points, exam findings, and any diagnostic results supporting the discharge/admit diagnosis, lab results, radiology results, the need for outpatient follow up, to return to the emergency department if symptoms worsen or persist or if there are any questions or concerns that arise at home. ED course: Patient is alert and non toxic in appearance in the ED. No signs of resp distress. . 08/21 14:36 Order name: Flu; Complete Time: 15:29 [facility] 08/21 14:36 Order name: Strep; Complete Time: 15:29 [facility] 08/21 14:39 Order name: Urine Dipstick--Ancillary (enter results); Complete Time: 15:29 08/21 14:39 Order name: Urine --Ancillary (enter results); Complete Time: 15:29 08/21 15:13 Order name: Throat Culture [facility] 08/21 15:30 Order name: Chest Single View XRAY; Complete Time: 16:12 [facility] 08/21 14:24 Order name: Urine Dipstick-Ancillary (obtain specimen); Complete Time: 14:38 [facility] 08/21 14:24 Order name: Urine Test (obtain specimen); Complete Time: 14:37 [facility] Administered Medications: No medications were administered Disposition: 17:56 Co-signature as Attending Physician, Mukund Melo MD Did not see or evaluate patient. ps1 Available for consultation during the patient encounter. Signature for administrative purposes. . Disposition: 08/21/20 16:27 Discharged to Home. Impression: Fever, unspecified. - Condition is Stable. - Discharge Instructions: Fever, Adult. - Prescriptions for Zofran ODT 4 mg Oral tablet,disintegrating - place 1 tablet by TRANSLINGUAL route every 4-6 hours; 20 tablet. - Work release form, Medication Reconciliation Form, Thank You Letter, Antibiotic Education, Prescription Opioid Use form. - Follow up: Private Physician; When: 2 - 3 days; Reason: Recheck today's complaints, Continuance of care, Re-evaluation by your physician. Signatures: Dispatcher [employer] EDMS Chris Chavis PA PA jmm Munoz, Edgar RN RN Nancy Yan RN RN iw Mukund Melo MD MD ps1 Corrections: (The following items were deleted from the chart) 17:15 16:27 08/21/2020 16:27 Discharged to Home. Impression: Fever, unspecified. Condition is iw Stable. Discharge Instructions: Fever, Adult. Prescriptions for Zofran ODT 4 mg Oral tablet,disintegrating - place 1 tablet by TRANSLINGUAL route every 4-6 hours; 20 tablet. and Forms are Work release form, Medication Reconciliation Form, Thank You Letter, Antibiotic Education, Prescription Opioid Use. Follow up: Private Physician; When: 2 - 3 days; Reason: Recheck today's complaints, Continuance of care, Re-evaluation by your physician. rama
--- NOTE | 2020-08-21 16:27 | ER ---
Nurse's Notes [facility] Name: Cindy Baker Age: 25 yrs Sex: Female : 1995 Arrival Date: 08/21/2020 Time: 12:30 Bed 24 Private MD: Diagnosis: Fever, unspecified Presentation: 08/21 13:07 Chief complaint: Patient states: has had N/V and chills and sweating for about 1 week, em was tested for strep and covid 1 week ago and was negative, was not checked for flu, reports similar symptoms. Coronavirus screen: Client denies travel out of the [place] in the last 14 days. Ebola Screen: Patient negative for fever greater than or equal to 101.5 degrees Fahrenheit, and additional compatible Ebola Virus Disease symptoms Patient denies exposure to infectious person. Patient denies travel to an Ebola-affected area in the 21 days before illness onset. No symptoms or risks identified at this time. Initial Sepsis Screen: Does the patient meet any 2 criteria? No. Patient's initial sepsis screen is negative. Does the patient have a suspected source of infection? No. Patient's initial sepsis screen is negative. Risk Assessment: Do you want to hurt yourself or someone else? Patient reports no desire to harm self or others. Onset of symptoms was August 13, 2020. 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 - Social history:: Smoking status: Reported history of juuling and/or vaping. Vital Signs: 13:07 BP 122 / 91; Pulse 85; Resp 18; Temp 98.9; Pulse Ox 99% on R/A; Weight 59.87 kg; Height em 5 ft. 2 in. (157.48 cm); Pain 6/10; 13:07 Body Mass Index 24.14 (59.87 kg, 157.48 cm) em ED Course: 12:30 Patient arrived in ED. as 13:10 Triage completed. em 13:10 Arm band placed on. em 13:35 Nancy Kasper, RN is Primary Nurse. iw 13:36 Chris Chavis PA is PHCP. [facility] 13:36 Mukund Melo MD is Attending Physician. jmm 14:38 Urine collected: clean catch specimen, tea colored. em 14:45 Flu and/or RSV swab sent to lab. Strep swab sent to lab. em 15:56 Chest Single View XRAY In Process Unspecified. EDMS Administered Medications: No medications were administered Outcome: 16:27 Discharge ordered by . jmm 17:15 Patient left the ED. iw Signatures: Dispatcher [employer] EDMS Chris Chavis PA PA Duane Bartholomew, RN RN Marnie Enriquez as Nancy Kasper, RN RN iw
[2020-08-24 10:28] VITALS: BP 122/91; TEMP 98.9; O2SAT 99
== END 2020-08-21 17:15 | disposition home or self-care (01) ==
LOC: ER 12:29
DX: R50.9 Fever, unspecified (principal); Z88.2 Allergy status to sulfonamides
CPT/HCPCS: 71045; 81003; 81025; 87070; 87081; 87804; 99283

== ENCOUNTER 2021-08-09 09:25 | Emergency (ER) | payer OTHER, SELFPAY ==
--- OUTSIDE RECORDS SUMMARY | 2021-08-09 09:27 | XMS REPORT | Continuity of Care Document ---
:1995 Author Organization [facility] t Address [address] [place] [address] Care Team Providers Name Role Phone Jacky SCHERER Attending Clinician Unavailable Johanny CASAREZ Attending Clinician Unavailable Michelle CANDELARIA, F Attending Clinician Doctor Unassigned, Name Attending Clinician Unavailable Dayna NELSON C Attending Clinician Mikie CORRAL Attending Clinician Unavailable Payers Payer Name Policy Type Policy Number Effective Date Expiration Date S bettina [employer] [place] [employer] [id number] 2020 00:00:00 COMMERCIAL [id number] 2020 NON-CONTRACT 00:00:00 GENERIC Problems This patient has no known problems. Allergies, Adverse Reactions, Alerts Allergy Allergy Status Severity Reaction(s) Onset Inactive Treating Comm ents Source Name Type Date Date Clinician SULFA Drug Active Rash Univers (SULFONA Class 4-02 ity of M[facility] 00:00: [place] ANTIBIOT 00 [facility]) Branch Medications This patient has no known medications. Procedures This patient has no known procedures. Encounters Start End Encounter Admission Attending Care Care Encounter Source Date/Time Date/Time Type Type Clinicians Facility Department ID 2021 Emergency [facility] [id number] [facility] Emergency [facility] [id number] [facility]:14[facility] 2021-07-07 Emergency [facility] [id number] [facility]:46[facility] 2021-03-20 2021-03-20 Outpatient R SCHERER, [facility] [id number] Univers 08:00:00 08:00:00 MARIERUDDYJonathon [id number] ity o [facility] 2021-03-20 2021-03-20 Outpatient R SCHERER, [facility] [id number] Univers 08:00:00 08:00:00 LEATHAVELMAROSA ity o [facility] 2021-02-28 2021-02-28 Outpatient R AKINSIPE, [facility] [id number] Univers 09:00:00 09:00:00 SOLEDAD [id number] ity o [facility] 2021-02-28 2021-02-28 Outpatient R AKINSIPE, [facility] [id number] Univers 09:00:00 09:00:00 SOLEDAD ity o [facility] 2021-02-28 2021-02-28 Outpatient R AKINSIPE, [facility] [id number] Univers 09:00:00 09:00:00 SOELDAD ity o [facility] 2021-02-09 2021-02-09 Outpatient R AKINSIPE, [facility] [id number] Univers 14:30:00 14:30:00 SOLEDAD [id number] ity o [facility] 2021-02-09 2021-02-09 Outpatient R AKINSIPE, [facility] [id number] Univers 14:30:00 14:30:00 SOLEDAD ity o [facility] 2021-02-09 2021-02-09 Outpatient R AKINSIPE, [facility] [id number] Univers 14:30:00 14:30:00 SOLEDAD ity o [facility] 2021-02-01 2021-02-01 Outpatient R AKINSIPE, [facility] [id number] Univers 15:00:00 15:00:00 SOLEDAD [id number] ity o [facility] 2021-02-01 2021-02-01 Outpatient R AKINSIPE, [facility] [id number] Univers 00:00:00 00:00:00 SOLEDAD ity o [facility] 2021-01-29 2021-01-29 Outpatient R AKINSIPE, [facility] [id number] Univers 08:30:00 08:30:00 SOLEDAD [id number] ity o [facility] 2021-01-29 2021-01-29 Outpatient R AKINSIPE, [facility] [id number] Univers 08:30:00 08:30:00 SOLEDAD ity o [facility] 2021-01-26 2021-01-26 Outpatient R AKINSIPE, [facility] [id number] Univers 09:30:00 09:30:00 SOLEDAD [id number] ity o [facility] 2021-01-26 2021-01-26 Outpatient R AKINSIPE, [facility] [id number] Univers 09:30:00 09:30:00 SOLEDAD ity o [facility] 2020-12-20 2020-12-20 Outpatient R AKINSIPE, [facility] [id number] Univers 09:15:00 09:15:00 SOLEDAD [id number] ity o [facility] 2020-12-20 2020-12-20 Outpatient R AKINSIPE, [facility] [id number] Univers 09:15:00 09:15:00 SOLEDAD ity o [facility] 2020-12-13 2020-12-13 Outpatient R AKINSIPE, [facility] [id number] Univers 09:00:00 09:00:00 SOLEDAD [id number] ity o [facility] 2020-12-13 2020-12-13 Outpatient R AKINSIPE, [facility] [id number] Univers 09:00:00 09:00:00 SOLEDAD ity o [facility] 2020-11-16 2020-11-16 Outpatient [facility] [id number] Univers 14:30:00 14:30:00 [id number] ity of [facility] 2020-11-16 2020-11-16 Outpatient R AKINSIPE, [facility] [id number] Univers 14:30:00 14:30:00 SOLEDAD ity o [facility] 2020-11-142020-11-14 Outpatient R GILMER, [facility] [id number] Univers 10:15:00 10:15:00 MOHINI [id number] ity o [facility] 2020-11-14 2020-11-14 Outpatient R GILMER, [facility] [id number] Univers 10:15:00 10:15:00 MOHINI cornellkenya o f [facility] 2020-08-14 2020-08-14 [facility] [id number] 19:43:00 21:26:00 Yony Vogel [place] [id number] [place] [id number] [place] [id number] 2020-08-14 2020-08-14 Orders Doctor GABY [id number] 00:00:00 00:00:00 Only Unassigned, CECY [id number] [place] [facility] [id number] 2020-08-01 2020-08-01 Outpatient R AKINSIPE, [facility] [id number] Univers 10:30:00 10:30:00 SOLEDAD [id number] kraigy o f [facility] 2020-08-01 2020-08-01 Outpatient R AKINSIPE, [facility] [id number] Univers 10:30:00 10:30:00 SOLEDAD whitley o [facility] 2020-07-18 2020-07-18 Office Dayna, [facility] [[email or web address]] [id number] 09:12:55 09:59:16 Visit Soledad [place] 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 [id number] [facility] [id number] MATERNAL [id number] & CHILD [address] [place] [address] 2020-07-18 2020-07-18 Outpatient R AKINSIPE, [facility] [id number] Univers 09:00:00 09:00:00 SOLEDAD [id number] kraigy o [facility] 2020-07-18 2020-07-18 Outpatient R AKINSIPE, [facility] [id number] Univers 09:00:00 09:00:00 SOLEDAD whitley o [facility] 2020-06-13 2020-06-13 Outpatient R AKINSIPE, [facility] [id number] Univers 11:00:00 11:00:00 SOLEDAD gutierrez o [facility] 2020-06-13 2020-06-13 Outpatient R AKINSIPE, [facility] [id number] Univers 11:00:00 11:00:00 SOLEDAD gutierrez o [facility] 2020-02-29 2020-02-29 Outpatient R AKINSIPE, [facility] [id number] Univers 10:30:00 10:30:00 SOLEDAD [id number] gutierrez o [facility] 2020-02-29 2020-02-29 Outpatient R AKINSIPE, [facility] [id number] Univers 10:30:00 10:30:00 SOLEDAD gutierrez o [facility] 2020-02-04 2020-02-04 Outpatient R AKINSIPE, [facility] [id number] Univers 08:15:00 08:15:00 SOLEDAD [id number] gutierrez [facility] 2020-02-04 2020-02-04 Outpatient R AKINSIPE, [facility] [id number] Univers 08:15:00 08:15:00 SOLEDAD gutierrez childs [facility] 2019-11-15 2019-11-15 Outpatient R SHAYNA, [facility] [id number] Univers 16:30:00 16:30:[address] [facility] 2019-11-15 2019-11-15 Outpatient R SHAYNA, [facility] [id number] Univers 10:15:00 10:15:[id number] [facility] 2019-11-15 2019-11-15 Outpatient R SHAYNA, [facility] [id number] Univers 10:15:00 10:15:[address] [facility] Results This patient has no known results.
--- NOTE | 2021-08-09 11:23 | EDPHYS ---
Physician Documentation [facility] Name: Cindy Hartman Age: 26 yrs Sex: Female : 1995 Arrival Date: 08/09/2021 Time: 09:26 Bed 13 Private MD: ED Physician Enrique Hubbard HPI: 08/09 11:26 This 26 yrs old Black Female presents to ER via Law Enforcement with complaints of kdr Psych Problem/depression/self injury. 11:26 The patient presents to the emergency department with depression, over a relationship, kdr thinks significant other is cheating, has had a recent break-up, a history of a suicide gesture, where the patient cut wrists. Onset: The symptoms/episode began/occurred suddenly, just prior to arrival. Past psychiatric history: Prior diagnosis: depression, Psychiatric medications include: none, Primary psychiatric physician: the patient does not have a primary psychiatric physician. Associated signs and symptoms: The patient has no apparent associated signs or symptoms. Severity of symptoms: At their worst the symptoms were mild in the emergency department the symptoms are unchanged. The patient has not experienced similar symptoms in the past. The patient has not recently seen a physician. 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 - Social history:: Smoking status: Patient denies any tobacco usage or history of. Patient/guardian denies using alcohol, street drugs. ROS: 11:26 Constitutional: Negative for fever, chills, and weight loss, Eyes: Negative for injury, kdr pain, redness, and discharge, ENT: Negative for injury, pain, and discharge, Neck: Negative for injury, pain, and swelling, Cardiovascular: Negative for chest pain, palpitations, and edema, Respiratory: Negative for shortness of breath, cough, wheezing, and pleuritic chest pain, Abdomen/GI: Negative for abdominal pain, nausea, vomiting, diarrhea, and constipation, Back: Negative for injury and pain, : Negative for injury, bleeding, discharge, and swelling, MS/Extremity: Negative for injury and deformity, Skin: Negative for injury, rash, and discoloration, Neuro: Negative for headache, weakness, numbness, tingling, and seizure activity. Allergy/Immunology: Negative for hives, rash, and allergies, Endocrine: Negative for neck swelling, polydipsia, polyuria, polyphagia, and marked weight changes, Hematologic/Lymphatic: Negative for swollen nodes, abnormal bleeding, and unusual bruising. 11:26 Psych: Positive for anxiety, depression, suicide gesture, Negative for drug dependence, alcohol dependence, auditory hallucinations, visual hallucinations, homicidal ideation, insomnia. Exam: 11:26 Constitutional: This is a well developed, well nourished patient who is awake, alert, kdr and in no acute distress. Head/Face: Normocephalic, atraumatic. Eyes: Pupils equal round and reactive to light, extra-ocular motions intact. Lids and lashes normal. Conjunctiva and sclera are non-icteric and not injected. Cornea within normal limits. Periorbital areas with no swelling, redness, or edema. Chest/axilla: Normal chest wall appearance and motion. Nontender with no deformity. No lesions are appreciated. Abdomen/GI: Soft, non-tender, with normal bowel sounds. No distension or tympany. No guarding or rebound. No evidence of tenderness throughout. 11:26 Psych: Behavior/mood is pleasant, cooperative, Affect is calm, Oriented to person, place, time, Patient has no thoughts/intents to harm self or others. Judgement / Insight is normal. Memory is normal. Delusions/hallucinations are not present. Not appear to be an active threat to herself or others. This was a first-time incident. She had had an encounter with her "" who she believes since yesterday has been cheating on their relationship. Her actions were impulse only and she currently has no intent or consideration of self-harm or harm to others. Vital Signs: 09:37 BP 119 / 80; Pulse 82; Resp 17; Temp 98.2; Pulse Ox 100% ; Weight 58.97 kg; Height 5 jl7 ft. 2 in. (157.48 cm); Pain 0/10; 09:37 Body Mass Index 23.78 (58.97 kg, 157.48 cm) jl7 MDM: 11:23 Patient medically screened. kdr 11:33 Data reviewed: vital signs, nurses notes. Counseling: I had a detailed discussion with kdr the patient and/or guardian regarding: the historical points, exam findings, and any diagnostic results supporting the discharge/admit diagnosis, the need for outpatient follow up. Administered Medications: No medications were administered Disposition Summary: 08/09/21 11:23 Discharge Ordered Location: Home kdr Problem: new kdr Symptoms: have improved kdr Condition: Stable kdr Diagnosis - Other depressive episodes kdr Followup: kdr - With: Private Physician - When: 2 - 3 days - Reason: If symptoms return, Further diagnostic work-up, Recheck today's complaints, Continuance of care, Re-evaluation by your physician Discharge Instructions: - Discharge Summary Sheet kdr - Suicidal Feelings: How to Help Yourself kdr - Helping Someone Who is Suicidal kdr - Abrasion, [id number] kdr Forms: - Medication Reconciliation Form kdr - Thank You Letter kdr - Work release form eb Signatures: Enrique Hubbard MD MD kdr Graham Harman RN RN jl7
--- NOTE | 2021-08-09 11:23 | ER ---
Nurse's Notes [facility] Name: Cindy Hartman Age: 26 yrs Sex: Female : 1995 Arrival Date: 08/09/2021 Time: 09:26 Bed 13 Private MD: Diagnosis: Other depressive episodes Presentation: 08/09 09:37 Chief complaint: Patient states: Superficial cut to left wrist, reports cutting wrist jl7 "from being angry and getting wrist", [place] Officer Ann Marie reports pt's mom called for a welfare check and found with superficial cuts to left wrist. Pt reports she was unaware that she would have to stay and "The only way they gonna take me is by handcuffs.". Coronavirus screen: At this time, the client does not indicate any symptoms associated with coronavirus-19. Ebola Screen: No symptoms or risks identified at this time. Initial Sepsis Screen: Does the patient meet any 2 criteria? No. Patient's initial sepsis screen is negative. Does the patient have a suspected source of infection? No. Patient's initial sepsis screen is negative. Risk Assessment: Do you want to hurt yourself or someone else? Patient reports desire/thoughts of hurting themselves or someone else. Provider notified. Other: Pt with superficial cut noted to left wrist. Onset of symptoms is unknown. 09:37 Method Of Arrival: Law Enforcement: Joan MARTÍNEZ [facility] 09:37 Acuity: ARIANNA 2 jl7 Triage Assessment: 09:46 General: Appears in no apparent distress. uncomfortable, Behavior is cooperative, jl7 agitated. Pain: Denies pain. 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 - Social history:: Smoking status: Patient denies any tobacco usage or history of. Patient/guardian denies using alcohol, street drugs. Screenin:30 Abuse screen: Denies threats or abuse. Nutritional screening: No deficits noted. 6 Tuberculosis screening: No symptoms or risk factors identified. Fall Risk None identified. Assessment: 10:30 General: Appears in no apparent distress. distressed, well groomed, well developed. jh6 10:30 Pain: Denies pain. jh6 11:31 Reassessment: Patient denies pain at this time. Patient states feeling better. Patient jh6 states symptoms have improved. Psych: 11:33 [place] Suicide Severity Screening: In the past month, have you wished you were jh6 or wished you could go to sleep and not wake up? Patient responds "No." "In the past month, have you actually had any thoughts of killing yourself?" Patient responds "no." "In your lifetime, have you ever done anything, started to do anything, or prepared to do anything to end your life?" Patient responds "no.". Subjective: Patient's mood is sad, Delusions are denied, Hallucinations are denied. Objective: Patient is cooperative, Speech is normal, Affect is appropriate, Patient has mutilated themselves by superficial scratches to l wrist. No bleeding swelling or signs of infection. Interventions: father at bedside. Safety Checks: Pt denies substance abuse. 11:35 Commitment: Pt states that she was upset this am and did state that she wanted to hurt jh6 herself out of frustration. pt states that she does not feel that way now and was not able to go through the plan of hurting herself due to knew she had to much to live for. Vital Signs: 09:37 BP 119 / 80; Pulse 82; Resp 17; Temp 98.2; Pulse Ox 100% ; Weight 58.97 kg; Height 5 7 ft. 2 in. (157.48 cm); Pain 0/10; 09:37 Body Mass Index 23.78 (58.97 kg, 157.48 cm) 7 ED Course: 09:26 Patient arrived in ED. as 09:46 Enrique Hubbard MD is Attending Physician. kdr 09:46 Triage completed. jl7 09:46 Arm band placed on right wrist. jl7 09:49 Kaycee Hernandez, KEITH is Primary Nurse. jh6 11:20 No provider procedures requiring assistance completed. Patient did not have IV access jh6 during this emergency room visit. IV discontinued. Administered Medications: No medications were administered Outcome: 11:23 Discharge ordered by . kdr 11:33 Discharged to home ambulatory. jh6 11:37 Condition: improved jh6 11:37 Discharge instructions given to patient, family, Instructed on discharge instructions, follow up and referral plans. Demonstrated understanding of instructions, follow-up care. 11:38 Patient left the ED. 6 Signatures: Enrique Hubbard MD MD kdr Martinez, Amelia as Leal, Jahala RN RN jl7 Kaycee Hernandez RN RN jh6
[2021-08-09 11:43] VITALS: BP 119/80; TEMP 98.2; O2SAT 100
== END 2021-08-09 11:38 | disposition home or self-care (01) ==
LOC: ER 09:25
DX: F32.89 Other specified depressive episodes (principal); Z88.2 Allergy status to sulfonamides
CPT/HCPCS: 99283